=== PATIENT | female | born 1930 | race Caucasian/White ===

== ENCOUNTER 2017-07-07 00:15 | Inpatient (IN) | payer OTHER, MEDICAID ==
--- NOTE | 2017-07-07 00:39 | EDPHY ---
H & P Stated Complaint: BIBA from [facility] for known femoral neck fx rt Time Seen by Provider: 07/07/17 00:30 HPI/ROS: CHIEF COMPLAINT: Femoral neck fracture HISTORY OF PRESENT ILLNESS: The patient is an 86-year-old female with a history of dementia who is bed-bound who began complaining of leg pain 2 days ago. The [facility] performed a x-ray and sent her here for a femoral neck fracture. They do not state that she has had any altered mental status. No new weakness or deficits. She has a slightly elevated temperature and foul- smelling urine however. The patient cannot answer questions reliably. REVIEW OF SYSTEMS: Unable to obtain secondary to condition EXAM: GENERAL: Confused, mild distress HEAD: Atraumatic, normocephalic. EYES: Pupils equal round and reactive to light, extraocular movements intact, sclera anicteric, conjunctiva are normal. ENT: TMs normal, nares patent, oropharynx clear without exudates. Moist mucous membranes. NECK: Normal range of motion, supple without lymphadenopathy or JVD. LUNGS: Breath sounds clear to auscultation bilaterally and equal. No wheezes rales or rhonchi. HEART: Regular rate and rhythm without murmurs, rubs or gallops. ABDOMEN: Soft, nontender, normoactive bowel sounds. No guarding, no rebound. No masses appreciated. BACK: No CVA tenderness, no spinal tenderness, step-offs or deformities EXTREMITIES: Pain with movement of either leg. Patient states mold legs hurt. Previous surgical scars to both knees. NEUROLOGICAL: Cranial nerves II through XII grossly intact. Normal speech. 4/ 5 strength, normal movement in all extremities, normal sensation PSYCH: Confused SKIN: Warm, dry, normal turgor, no visible rashes or lesions. Source: Patient Exam Limitations: No limitations - Personal History Current Tetanus/Diphtheria Vaccine: Unsure Current Tetanus Diphtheria and Acellular Pertussis (TDAP): Unsure Tetanus Vaccine Date: PT ALLERGIC TO TETANUS VACCINE - Medical/Surgical History Hx Asthma: Yes Hx Chronic Respiratory Disease: Yes Hx Diabetes: No Hx Cardiac Disease: Yes Hx Renal Disease: No Hx Cirrhosis: No Hx Alcoholism: No Hx HIV/AIDS: No Hx Splenectomy or Spleen Trauma: No Other PMH: Anemia, lamar's esophagus, dementia, wheelchair-bound, CHF, COPD, B TKA, femur repair, hip repair, c-sections, hysterectomy, urinary incontinence , palliative care at [facility] - Family History Significant Family History: No pertinent family hx - Social History Smoking Status: Never smoked Alcohol Use: Sober Drug Use: None Constitutional: Initial Vital Signs O2 Sat (%) 95 07/07/17 00:26 O2 Delivery Mode Nasal Cannula O2 (L/minute) 2 Allergies/Adverse Reactions: aspirin Allergy (Severe, Verified 04/27/13 20:38) Anaphylaxis tetanus toxoid, adsorbed [Tetanus Toxoid,Adsorbed] Allergy (Severe, Verified 20:38) Other-Enter Comments epinephrine [Epinephrine] Allergy (Unknown, Verified 04/27/13 20:38) Unknown hydrocodone [Hydrocodone] Allergy (Unknown, Verified 04/27/13 20:38) Unknown hydrochlorothiazide Allergy (Verified 04/27/13 20:38) Home Medications: Medication Instructions Recorded Acetaminophen [Tylenol 325mg (*)] 650 mg PO Q4 PRN 05/30/15 Albuterol [Proventil Inhaler HFA 2 puffs IH Q2 PRN 05/30/15 (*)] Bisacodyl [Bisacodyl (*)] 5 mg PO DAILY PRN 05/30/15 DULoxetine [Cymbalta 60 MG (*)] 60 mg PO DAILY 05/30/15 Ergocalciferol [Vitamin D2 (*)] 50,000 units PO .QMONTH 05/30/15 Estring 2 Mg Insert 2 mg VG .Q3MOS 05/30/15 Furosemide [Lasix 40 MG (*)] 40 mg PO DAILY 05/30/15 Herbals/Supplements -Info Only 1 ea PO DAILY 05/30/15 Ipratropium/Albuterol [Combivent 1 inh IH QID PRN 05/30/15 Respimat Inhal Col[place](*)] Ketoconazole 2% [Nizoral Shampoo 1 nela TP DAILY PRN 05/30/15 (*)] LORazepam [Ativan (*)] 0.5 mg PO BID 05/30/15 LORazepam [Ativan (*)] 0.5 mg PO BID PRN 05/30/15 Levothyroxine [Synthroid 88 mcg 88 mcg PO DAILY06 05/30/15 (*)] Magnesium Hydroxide/Al Hydrox 30 ml PO Q4 PRN 05/30/15 [Mylanta Liquid] Omeprazole [Prilosec 20 mg] 20 mg PO DAILY 05/30/15 Ondansetron Odt [Zofran Odt 4 mg 4 mg PO Q8 PRN 05/30/15 (*)] Polyethylene Glycol 3350 [Miralax 17 gm PO DAILY 05/30/15 17 gm (*)] Sennosides/Docusate Sodium 1 each PO BID 05/30/15 [Senokot-S] Trimethoprim 200 mg PO DAILY 05/30/15 buPROPion [Wellbutrin 100mg (*)] 100 mg PO DAILY 05/30/15 guaiFENesin [Mucinex 600 MG (*)] 600 mg PO BID PRN 05/30/15 oxyCODONE IR [Oxycodone Ir (*)] 5 mg PO Q4 PRN 05/30/15 rOPINIRole HCL [Requip 0.25mg (RX)] 0.25 mg PO BID 05/30/15 traZODone [traZODONE 50MG (*)] 50 mg PO HS 05/30/15 Tapentadol HCl [Nucynta 50 MG (*)] 50 mg PO Q4 PRN #0 tab 06/04/15 Medical Decision Making ED Course/Re-evaluation: 2:45 a.m. I discussed the case with Dr. Kajal Braxton who will admit to the hospital service. I will also page orthopedist. I have started Rocephin. 2:55 a.m. I discussed the case with Ana who is the PA for Dr. Petersen. They will consult tomorrow. Differential Diagnosis: Partial list of the Differential diagnosis considered include but were not limited to; hip fracture, urinary tract infection, sepsis, altered mental status and although unlikely based on the history and physical exam, I also considered head injury, meningitis, assault. - Data Points Laboratory Results: Laboratory Results 07/07/17 01:02 07/07/17 01:02 07/07/17 07/07/17 07/07/17 02:00 01:02 01:02 WBC RBC Hgb Hct MCV MCH MCHC RDW Plt Count MPV Neut % (Auto) Lymph % (Auto) [place] % (Auto) Eos % (Auto) Baso % (Auto) Nucleat RBC Rel Count Absolute Neuts (auto) Absolute Lymphs (auto) Absolute Monos (auto) Absolute Eos (auto) Absolute Basos (auto) Absolute Nucleated RBC Immature Gran % Immature Gran # PT 14.3 SEC SEC (12.0-15.0) INR 1.12 (0.83-1.16) APTT 29.3 SEC SEC (23.0-38.0) VBG Lactic Acid Sodium 129 mEq/L L mEq/L (134-144) Potassium 4.6 mEq/L mEq/L (3.5-5.2) Chloride 97 mEq/L mEq/L (97-110) Carbon Dioxide 24 mEq/l mEq/l (22-31) Anion Gap 8 mEq/L mEq/L (8-16) BUN 10 mg/dL mg/dL (7-23) Creatinine 0.7 mg/dL mg/dL (0.6-1.0) Estimated GFR > 60 Glucose 108 mg/dL H mg/dL (70-100) Calcium 9.4 mg/dL mg/dL (8.5-10.4) Total Bilirubin 1.0 mg/dL mg/dL (0.1-1.4) Urine Color YELLOW Urine Appearance MODERATELY TURBID Urine pH 7.0 (5.0-7.5) Ur Specific [place] 1.012 (1.002-1.030) Urine Protein 1+ H (NEGATIVE) Urine Ketones NEGATIVE (NEGATIVE) Urine Blood 1+ H (NEGATIVE) Urine Nitrate POSITIVE H (NEGATIVE) Urine Bilirubin NEGATIVE (NEGATIVE) Urine Urobilinogen NEGATIVE EU EU (0.2-1.0) Ur Leukocyte Esterase TRACE H (NEGATIVE) Urine RBC 15-25 /hpf H /hpf (0-3) Urine WBC 50-182 /hpf H /hpf (0-3) Ur Epithelial Cells TRACE /lpf /lpf (NONE-1+) Urine Bacteria 4+ /hpf H /hpf (NONE SEEN) Urine Glucose NEGATIVE (NEGATIVE) 07/07/17 07/07/17 01:02 01:02 WBC 7.09 10^3/uL 10^3/uL (3.80-9.50) RBC 3.39 10^6/uL L 10^6/uL (4.18-5.33) Hgb 10.2 g/dL L g/dL (12.6-16.3) Hct 31.6 % L % (38.0-47.0) MCV 93.2 fL fL (81.5-99.8) MCH 30.1 pg pg (27.9-34.1) MCHC 32.3 g/dL L g/dL (32.4-36.7) RDW 14.3 % % (11.5-15.2) Plt Count 268 10^3/uL 10^3/uL (150-400) MPV 9.0 fL fL (8.7-11.7) Neut % (Auto) 70.5 % % (39.3-74.2) Lymph % (Auto) 14.4 % L % (15.0-45.0) [place] % (Auto) 13.0 % % (4.5-13.0) Eos % (Auto) 1.4 % % (0.6-7.6) Baso % (Auto) 0.4 % % (0.3-1.7) Nucleat RBC Rel Count 0.0 % % (0.0-0.2) Absolute Neuts (auto) 5.00 10^3/uL 10^3/uL (1.70-6.50) Absolute Lymphs (auto) 1.02 10^3/uL 10^3/uL (1.00-3.00) Absolute Monos (auto) 0.92 10^3/uL H 10^3/uL (0.30-0.80) Absolute Eos (auto) 0.10 10^3/uL 10^3/uL (0.03-0.40) Absolute Basos (auto) 0.03 10^3/uL 10^3/uL (0.02-0.10) Absolute Nucleated RBC 0.00 10^3/uL 10^3/uL (0-0.01) Immature Gran % 0.3 % % (0.0-1.1) Immature Gran # 0.02 10^3/uL 10^3/uL (0.00-0.10) PT INR APTT VBG Lactic Acid 0.5 mmol/L L mmol/L (0.7-2.1) Sodium Potassium Chloride Carbon Dioxide Anion Gap BUN Creatinine Estimated GFR Glucose Calcium Total Bilirubin Urine Color Urine Appearance Urine pH Ur Specific [place] Urine Protein Urine Ketones Urine Blood Urine Nitrate Urine Bilirubin Urine Urobilinogen Ur Leukocyte Esterase Urine RBC Urine WBC Ur Epithelial Cells Urine Bacteria Urine Glucose Medications Given: Hydromorphone HCl (Dilaudid) 0.5 - 1 mg IVP Q4HRS PRN PRN Reason: Pain, Severe Unable to Take PO Stop: 07/17/17 03:32 Last Admin: 07/07/17 03:52 Dose: 0.5 mg Dextrose/Sodium Chloride (D5w 1/2 Ns) 1,000 mls @ 75 mls/hr IV CONT KAREN Stop: 01/03/18 03:44 Last Admin: 07/07/17 03:53 Dose: 1,000 mls Discontinued Medications Hydromorphone HCl (Dilaudid) 0.5 mg IVP EDNOW ONE Stop: 07/07/17 01:07 Last Admin: 07/07/17 01:18 Dose: 0.5 mg Ceftriaxone Sodium/Dextrose (Rocephin 1 Gm (Premix)) 50 mls @ 100 mls/hr IV EDNOW ONE PRN Reason: Protocol Stop: 07/07/17 03:13 Last Admin: 07/07/17 02:49 Dose: 50 mls Departure - Departure Disposition: [facility] Inpatient Acute Clinical Impression: Urinary tract infection Qualifiers: Urinary tract infection type: acute cystitis Hematuria presence: without hematuria Qualified Code(s): N30.00 - Acute cystitis without hematuria Hip fracture, right Qualifiers: Encounter type: initial encounter Fracture type: closed Qualified Code(s): S72.001A - Fracture of unspecified part of neck of right femur, initial encounter for closed fracture Condition: Fair
[2017-07-07] MEDS ORDERED: HYDROmorphONE/DILAUDID 1 MG/ML SYR IVP ONE (01:06)
[2017-07-07 01:16] LABS: % IMMATURE GRANULYOCYTES 0.3 % (0.0-1.1); ABSOLUTE IMMATURE GRANULOCYTES 0.02 10^3/uL (0.00-0.10); ADD DIFF? NO; ADD MORPH? NO; ADD SCAN? NO; ATYPICAL LYMPHOCYTE FLAG 0 (0-99); FRAGMENT RBC FLAG 0 (0-99); HEMATOCRIT 31.6 % (38.0-47.0); HEMOGLOBIN 10.2 g/dL (12.6-16.3); LEFT SHIFT FLG 0 (0-99); LIPEMIA HEMOLYSIS FLAG 80 (0-99); MEAN CELL HEMOGLOBIN 30.1 pg (27.9-34.1); MEAN CELL HEMOGLOBIN CONCENTR. 32.3 g/dL (32.4-36.7); MEAN CELL VOLUME 93.2 fL (81.5-99.8); PLATELET CLUMPS FLAG 20 (0-99); PLATELET COUNT 268 10^3/uL (150-400); RED BLOOD CELL COUNT 3.39 10^6/uL (4.18-5.33); RED CELL DISTRIBUTION WIDTH 14.3 % (11.5-15.2)
[2017-07-07 01:24] LABS: ANION GAP 8 mEq/L (8-16); CALCIUM 9.4 mg/dL (8.5-10.4); CARBON DIOXIDE 24 mEq/l (22-31); CHLORIDE 97 mEq/L (97-110); CREATININE 0.7 mg/dL (0.6-1.0); GLOMERULAR FILTRATION RATE > 60; GLUCOSE 108 mg/dL (70-100); POTASSIUM 4.6 mEq/L (3.5-5.2); SODIUM 129 mEq/L (134-144)
[2017-07-07 01:25] LABS: INR 1.12 (0.83-1.16); PROTIME(PATIENT) 14.3 SEC (12.0-15.0)
[2017-07-07 01:26] LABS: APTT 29.3 SEC (23.0-38.0)
[2017-07-07] MEDS ORDERED: LIDOCAINE 2% JELLY 20 ML (UROJECT) ONE (01:56)
[2017-07-07 02:08] LABS: COLOR YELLOW; LEUKOCYTE ESTERASE,URINE TRACE (NEGATIVE); NITRITE,URINE POSITIVE (NEGATIVE)
[2017-07-07 02:14] LABS: BACTERIA 4+ /hpf (NONE SEEN); RBC,URINE 15-25 /hpf (0-3); WBC,URINE 50-182 /hpf (0-3)
[2017-07-07] MEDS ORDERED: ONDANSETRON DISINTEGRATING 4 MG TAB PO PRN (03:33)
[2017-07-07] MEDS ORDERED: ONDANSETRON 4 MG/2 ML VIAL IVP PRN (03:33)
[2017-07-07] MEDS ORDERED: ACETAMINOPHEN 325 MG TAB PO PRN (03:33)
[2017-07-07] MEDS: HYDROmorphONE/DILAUDID 1 MG/ML SYR IVP PRN ×3 (03:52→09:39)
[2017-07-07] MEDS: D5W 1/2 NS 1,000 ML IV SCH ×3 (03:53→18:25)
--- NOTE | 2017-07-07 07:26 | GHP ---
[f rep st] HISTORY AND PHYSICAL DATE OF ADMISSION: 07/07/2017 CHIEF COMPLAINT: Leg pain. HISTORY OF PRESENT ILLNESS: This is an 86-year-old female with advanced dementia. She is essential ly bed bound. She started complaining of leg pain about 2 days ago and the custodial performed a n x-ray and fracture and sent her here. The patient is currently complaining of pain "al l over". She is unable to really participate in a meaningful history. Apparently, she has also had some slightly elevated temperature, a mild fever and foul-smelling urine. REVIEW OF SYSTEMS: Unable to be obtained secondary to patient's significant dementia. PAST MEDICAL HISTORY: 1. Advanced dementia. 2. COPD. 3. Hypothyroidism. 4. Hypertension. 5. History of breast cancer. 6. Stevens's esophagus. 7. Questionable CHF. 8. Urinary incontinence. 9. Chronic anemia. FAMILY HISTORY: Unable to be obtained. SOCIAL HISTORY: Lives at [facility]. PHYSICAL EXAM: VITAL SIGNS: Afebrile, blood pressure is 129/58, heart rate 83, oxygen saturation 9 2% on 1.5 L. GENERAL: The patient is distressed secondary to pain. HEENT: Nonicteric sclerae. E xtraocular movements intact. Moist mucous membranes. NECK: Supple. No thyromegaly. LUNGS: Good effort. Clear to auscultation bilaterally. CARDIOVASCULAR: Regular rate and rhythm. No murmurs, rubs, or gallops. ABDOMEN: Positive bowel sounds, soft, multiple hernias, especially on the right side. EXTREMITIES: No clubbing, cyanosis, or edema. SKIN: Without rash, warm, dry, intact. HALEY RO: Confused. LABS: CBC is essentially normal with a hemoglobin of 10. Sodium 129 which appears to be chronic. Creatinine is 0.7. Urinalysis does show pyuria and bacteria. ASSESSMENT: 1. Right femoral hip fracture. The patient will go to surgery today. 2. Urinary tract infection. We will treat with IV ceftriaxone. 3. Dementia. This is fairly significant. 4. Anemia. Monitor postoperatively. 5. Questionable congestive heart failure. We will watch fluid intake. 6. Chronic obstructive pulmonary disease. This is stable. /[id number]/MODL
--- NOTE | 2017-07-07 08:27 | HOSPPROG ---
Hospitalist Progress Note Assessment/Plan: Patient is an 86-year-old female with advanced dementia who had been complaining of leg pain. It was noted that she had a right femoral hip fracture. She will be going to OR today. * right femoral hip fracture Surgery today patient having significant pain this morning increased frequency of pain medications * urinary tract infection Ceftriaxone * advanced dementia suspect she is at her baseline * hypothyroidism resumed Synthroid * hyponatremia Na is 129 will follow * hypertension stable *questionable hx of CHF will monitor for any signs of failure *anemia follow *DVT prophylaxis will need LMWH after surgery, athrombic pumps in place Subjective: Pham is confused, not c/o pain when I evaluated her/ asking to get oob. Objective: Vital Signs Temp Pulse Resp BP Pulse Ox 37.3 C 83 12 135/69 H 95 07/07/17 07:28 07/07/17 07:28 07/07/17 07:28 07/07/17 07:28 07/07/17 07:28 07/06/17 07/07/17 07/08/17 05:59 05:59 05:59 Intake Total 100 Balance 100 PT 14.3 SEC (12.0-15.0) 07/07/17 01:02 INR 1.12 (0.83-1.16) 07/07/17 01:02 - Physical Exam Constitutional: chronically ill appearing, uncomfortable Eyes: PERRL Ears, Nose, Mouth, Throat: hearing normal Cardiovascular: regular rate and rhythym Respiratory: no respiratory distress, reduced air movement Gastrointestinal: normoactive bowel sounds Skin: warm, normal color Neurologic: other (alert, oriented only to herself) Psychiatric: anxious, poor memory ICD10 Worksheet Patient Problems: Problems Problem Status Onset Hip fracture, right Acute Urinary tract infection Acute Tibial fracture Acute
[2017-07-07] MEDS ORDERED: IPRATROPIUM/ALBUTEROL 3 ML DEYVIAL IH PRN (08:50)
--- NOTE | 2017-07-07 09:45 | CPEKG ---
Heart Rate: 85 RR Interval: 706 P-R Interval: 152 QRSD Interval: 76 QT Interval: 364 QTC Interval: 433 P Mission: 37 QRS Mission: 33 T Wave Mission: -15 EKG Severity - BORDERLINE ECG - EKG Impression: SINUS RHYTHM EKG Impression: BORDERLINE T ABNORMALITIES, INFERIOR LEADS Electronically Signed By: Chirag Nguyen 07-Jul-2017 11:48:07
[2017-07-07] MEDS: SALMETEROL DISKUS MDI IH SCH ×2 (10:04→21:09)
[2017-07-07] MEDS: TIOTROPIUM INHALER 18 MCG/DOSE 5 DOSE/MDI IH SCH (10:04)
[2017-07-07] MEDS: SERTRALINE HCL 50 MG TAB PO SCH (10:21)
[2017-07-07] MEDS: GABAPENTIN 100 MG CAP PO SCH ×2 (10:22→20:31)
[2017-07-07] MEDS: LORazepam 0.5 MG TAB PO SCH ×2 (10:23→20:31)
[2017-07-07] MEDS: SENNOSIDES/DOCUSATE SODIUM TAB PO SCH ×2 (10:37→20:30)
--- NOTE | 2017-07-07 10:49 | ASMTCASEMG ---
Living Arrangements What is your living arrangement? Who do you live Answers: Alone with? Type Of Residence What kind of residence do you live in? Answers: [facility] Facility Type of Residence Facility Name Notes: [facility] Case Management Evaluation Psychosocial Needs: Answers: Behavioral Health Issue Notes: Dementia Discharge Plan Comments Coordination Status Comments Notes: Chart reviewed; met w/ son and pt. Pt admitted w/ right femoral hip fracture after falling, accordi ng to son. Pt has advanced dementia. Pt will have surgery today. Spoke w/ BENJAMIN Eldridge. Reports that pt will most likely transfer to ortho/neuro. Pt resi nicole at [facility]. CM called [facility] and left [facility] for director television/requesting a call back to discuss case. CM to follow. Date Signed: 07/07/2017 10:48 AM Electronically Signed By:Skye Darby
[2017-07-07] MEDS ORDERED: MAGNESIUM HYDROXIDE 30 ML UDCUP PO PRN (11:16)
[2017-07-07] MEDS ORDERED: BISACODYL 10 MG SUPP PR PRN (11:16)
[2017-07-07] MEDS ORDERED: LACTULOSE 20 GM/30 ML UDCUP PO PRN (11:16)
--- NOTE | 2017-07-07 12:27 | GCON ---
[f rep st] CONSULTATION CHIEF COMPLAINT: Right hip pain. HISTORY OF PRESENT ILLNESS: Patient is an 86-year-old female with a significant history of dementia, who is bedbound, limited to transfers (non- self transfers only x 2 yrs) and started complaining of right hip pain about 2 days ago. She is residing at a palliative care nursing facility. She denies any weakness or deficits. She has had elevated temperatures with foul-smelling urine and a diagnosis of a urinary tract infection. She was seen through the [facility] ER, then admitted to the hospital and started on antibiotics for her UTI. She denies any other orthopedic complaint. PAST MEDICAL HISTORY: Dementia, urinary incontinence, asthma, COPD, hypothyroid , hyponatremia, cardiac disease, CHF, anemia, Stevens esophagus. PAST SURGICAL HISTORY: L hip tiki 2008, L femur ORIF 2010. B TKA . JUANCHO 1979. Spine cyst resxn mid . C-sections. SOCIAL HISTORY: Patient is non cigarette smoker. No alcohol or drug use. Resides at [facility]. ALLERGIES: Aspirin, tetanus, epinephrine, hydrocodone, HCTZ. MEDICATIONS: Please see medication list in her chart. FAMILY HISTORY: Noncontributory. REVIEW OF SYSTEMS: Unable to obtain secondary to condition. Reviewed with son with no other complaints or concerns or history. PHYSICAL EXAMINATION: GENERAL: Pleasant, NAD. HEENT: AT/NC. EOMI. PERRLA. Ears and nares patent without discharge. NECK: Nontender to palpation. Full range of motion. MUSCULOSKELETAL: Exam of the right hip, the skin is without erythema, ecchymosis, scar or edema. There is pain to palpation over the right greater trochanter and pain with any movement, internal or external rotation of the hip. sensation and motor are intact. Distal pulse present in the right lower extremity. SKIN: Warm, dry and intact. NEUROLOGIC: Nonfocal. No deficits noted. PSYCHIATRIC: Alert and awake, but confused. RADIOGRAPHS: X-ray reviewed and show a right hip femoral neck fracture. IMPRESSION: Displaced right hip femoral neck fracture. PLAN: Patient was examined and was discussed with Dr. Petersen. Dr. Petersen did speak to the patient's son, who is the medical decision maker, about appropriate care. It was decided that the patient would go forward with a right hip hemiarthroplasty for her right hip femoral neck fracture, at a minimum for palliative reasons. All the risks, benefits, complications were explained to the son. Dr. Petersen has obtained a signed and witnessed informed consent, for hemiarthroplasty on July 08, by Dr. Petersen. Continue IV abx for UTI. NPO p MN x meds. Patient should continue nonweightbearing on the right lower extremity, bedrest and position of comfort, TEDs and SCDs bilateral lower extremities. DVT prophylaxis will be managed by the admitting service. Ice to the right hip and pain medicine as needed. All questions were answered to the patient's satisfaction and son's satisfaction. /[id number]/MODL MTDD
[2017-07-07] MEDS: HYDROmorphONE/DILAUDID 2 MG TAB PO PRN ×2 (14:25→20:31)
--- NOTE | 2017-07-07 16:39 | ASMTCMCOM ---
CM Note CM Note Notes: Son suspecting that pt fell at [facility]. CM recieved call from BENJAMIN Barboza at [facility]. Accord ing to Tamra there have not been any falls that have been reported. Tamra is in the process of interviewing staff that had direct contact w/ pt. CM updated son regarding conversation w/ Tamra. Son to follow up with Tamra. Date Signed: 07/07/2017 04:38 PM Electronically Signed By:Skye Darby
[2017-07-08] MEDS: HYDROmorphONE/DILAUDID 2 MG TAB PO PRN ×2 (00:27→04:52)
[2017-07-08] MEDS: LEVOTHYROXINE 88 MCG TAB PO SCH (04:52)
[2017-07-08 05:23] LABS: % IMMATURE GRANULYOCYTES 0.4 % (0.0-1.1); ABSOLUTE IMMATURE GRANULOCYTES 0.03 10^3/uL (0.00-0.10); ADD DIFF? NO; ADD MORPH? NO; ADD SCAN? NO; ATYPICAL LYMPHOCYTE FLAG 0 (0-99); FRAGMENT RBC FLAG 0 (0-99); HEMATOCRIT 32.6 % (38.0-47.0); HEMOGLOBIN 10.3 g/dL (12.6-16.3); LEFT SHIFT FLG 0 (0-99); LIPEMIA HEMOLYSIS FLAG 80 (0-99); MEAN CELL HEMOGLOBIN 30.5 pg (27.9-34.1); MEAN CELL HEMOGLOBIN CONCENTR. 31.6 g/dL (32.4-36.7); MEAN CELL VOLUME 96.4 fL (81.5-99.8); MEAN PLATELET VOLUME 9.4 fL (8.7-11.7); PLATELET CLUMPS FLAG 0 (0-99); PLATELET COUNT 253 10^3/uL (150-400); RED BLOOD CELL COUNT 3.38 10^6/uL (4.18-5.33)
[2017-07-08 05:33] LABS: ANION GAP 7 mEq/L (8-16); CALCIUM 9.2 mg/dL (8.5-10.4); CARBON DIOXIDE 25 mEq/l (22-31); CHLORIDE 96 mEq/L (97-110); CREATININE 0.6 mg/dL (0.6-1.0); GLOMERULAR FILTRATION RATE > 60; GLUCOSE 99 mg/dL (70-100); POTASSIUM 4.5 mEq/L (3.5-5.2); SODIUM 128 mEq/L (134-144)
--- NOTE | 2017-07-08 08:21 | SOAPPROG ---
WILDER Progress Note Assessment/Plan: Assessment/Plan: R femoral neck fracture - Plan for R hemiarthroplasty today with Dr. Petersen - Pt is bedbound - Continue pain control - PT/OT after surgery - NPO - Ice on the area for comfort - Call with any questions or concerns Plan: 07/08/17 08:18 Subjective: Pt states her hip is fine, she is not complaining of any pain. Objective: Pt is asleep and can be aroused, but does not answer questions. She is able to follow commands. Vital Signs Temp Pulse Resp BP Pulse Ox 38.0 C 80 24 H 124/55 H 97 07/08/17 07:42 07/08/17 07:42 07/08/17 07:42 07/08/17 07:42 07/08/17 07:42 Laboratory Results 07/08/17 04:25 07/08/17 04:25 07/07/17 07/08/17 07/09/17 05:59 05:59 05:59 Intake Total 100 Balance 100 PT 14.3 SEC (12.0-15.0) 07/07/17 01:02 INR 1.12 (0.83-1.16) 07/07/17 01:02 Physical Exam - Physical Exam General Appearance: other (sleeping soundly) Cardiac/Chest: normal peripheral pulses Skin: normal color, warm/dry Extremities: normal inspection, normal capillary refill, No pedal edema, No calf tenderness, No swelling, No Leah's sign Neuro/Psych: no motor/sensory deficits ICD10 Worksheet Patient Problems: Problems Problem Status Onset Hip fracture, right Acute Urinary tract infection Acute Tibial fracture Acute
[2017-07-08] MEDS: PANTOPRAZOLE SODIUM 40 MG TAB PO SCH (08:23)
[2017-07-08] MEDS: LORazepam 0.5 MG TAB PO SCH ×2 (08:23→20:42)
[2017-07-08] MEDS: POLYETHYLENE GLYCOL 3350 17 GM PKT PO SCH (08:23)
[2017-07-08] MEDS: GABAPENTIN 100 MG CAP PO SCH ×2 (08:23→20:43)
[2017-07-08] MEDS: SERTRALINE HCL 50 MG TAB PO SCH (08:24)
[2017-07-08] MEDS: SENNOSIDES/DOCUSATE SODIUM TAB PO SCH ×2 (08:24→20:42)
--- NOTE | 2017-07-08 08:43 | HOSPPROG ---
Hospitalist Progress Note Assessment/Plan: Patient is an 86-year-old female with advanced dementia who had been complaining of leg pain. It was noted that she had a right femoral hip fracture. She will be going to OR today. * right femoral hip fracture Surgery today * urinary tract infection Ceftriaxone * advanced dementia suspect she is at her baseline * hypothyroidism resumed Synthroid * hyponatremia Na is 128 will follow * hypertension stable *questionable hx of CHF will monitor for any signs of failure *anemia follow *DVT prophylaxis will need LMWH after surgery, athrombic pumps in place Subjective: Pham keeps asking to eat during my evaluation. Objective: Vital Signs Temp Pulse Resp BP Pulse Ox 38.0 C 80 24 H 124/55 H 97 07/08/17 07:42 07/08/17 07:42 07/08/17 07:42 07/08/17 07:42 07/08/17 07:42 Laboratory Results 07/08/17 04:25 07/08/17 04:25 07/07/17 07/08/17 07/09/17 05:59 05:59 05:59 Intake Total 100 Balance 100 PT 14.3 SEC (12.0-15.0) 07/07/17 01:02 INR 1.12 (0.83-1.16) 07/07/17 01:02 - Physical Exam Constitutional: chronically ill appearing, uncomfortable, No not in pain Eyes: PERRL Ears, Nose, Mouth, Throat: hearing normal Cardiovascular: regular rate and rhythym Respiratory: no respiratory distress Gastrointestinal: normoactive bowel sounds Skin: warm Psychiatric: interacting appropriately, poor memory ICD10 Worksheet Patient Problems: Problems Problem Status Onset Hip fracture, right Acute Urinary tract infection Acute Tibial fracture Acute
[2017-07-08] MEDS ORDERED: NS 1,000 ML IV SCH (08:45)
[2017-07-08] MEDS: HYDROmorphONE/DILAUDID 1 MG/ML SYR IVP PRN ×2 (09:15→17:52)
[2017-07-08] MEDS: TIOTROPIUM INHALER 18 MCG/DOSE 5 DOSE/MDI IH SCH (09:35)
[2017-07-08] MEDS: SALMETEROL DISKUS MDI IH SCH ×2 (09:36→20:25)
[2017-07-08] MEDS ORDERED: BUPIVACAINE 0.25% 30 ML SDV ONE ×2 (10:10→11:39)
[2017-07-08] MEDS ORDERED: ceFAZolin 2 GM/DEXTROSE 100 ML IV ONE (11:07)
[2017-07-08] MEDS ORDERED: ROCURONIUM 50 MG/5 ML VIAL ONE (11:23)
[2017-07-08] MEDS ORDERED: fentaNYL 100 MCG/2 ML INJ ONE ×4 (11:23→15:03)
[2017-07-08] MEDS ORDERED: PROPOFOL 200 MG/20 ML VIAL ONE (11:23)
[2017-07-08] MEDS ORDERED: LIDOCAINE 2% 100 MG/5 ML SYR ONE (11:24)
[2017-07-08] MEDS ORDERED: LR 1,000 ML IV ONE (11:30)
--- NOTE | 2017-07-08 11:32 | PDANEPAE ---
ANE Past Medical History - Pulmonary History Hx Oxygen in Use at Home: Yes O2 in Use at Home (L/minute): 2 Hx Sleep Apnea: No Sleep Apnea Screening Result - Last Documented: Negative - Endocrine History Hx Diabetes: No ANE Patient History - Allergies Allergies/Adverse Reactions: aspirin Allergy (Severe, Verified 04/27/13 20:38) Anaphylaxis tetanus toxoid, adsorbed [Tetanus Toxoid,Adsorbed] Allergy (Severe, Verified 20:38) Other-Enter Comments epinephrine [Epinephrine] Allergy (Unknown, Verified 04/27/13 20:38) Unknown hydrocodone [Hydrocodone] Allergy (Unknown, Verified 04/27/13 20:38) Unknown hydrochlorothiazide Allergy (Verified 04/27/13 20:38) - Home Medications Home Medications: Acetaminophen [Tylenol 325mg (*)] 650 mg PO Q6HRS PRN 05/30/15 [Last Taken Unknown] Bisacodyl [Bisacodyl (*)] 5 mg PO DAILY PRN 05/30/15 [Last Taken Unknown] Ergocalciferol [Vitamin D2 (*)] 50,000 units PO Q30D 05/30/15 [Last Taken ] Estring 2 Mg Insert 2 mg VG .Q3MOS 05/30/15 [Last Taken Unknown] Ketoconazole 2% [Nizoral Shampoo (*)] 1 nela TP DAILY PRN 05/30/15 [Last Taken Unknown] LORazepam [Ativan (*)] 0.25 mg PO DAILY 05/30/15 [Last Taken Unknown] LORazepam [Ativan (*)] 0.5 mg PO HS 05/30/15 [Last Taken Unknown] Levothyroxine [Synthroid 88 mcg (*)] 88 mcg PO DAILY06 05/30/15 [Last Taken Unknown] Magnesium Hydroxide/Al Hydrox [Mylanta Liquid] 30 ml PO DAILY PRN 05/30/15 [ Last Taken Unknown] Omeprazole [Prilosec 20 mg] 20 mg PO DAILY 05/30/15 [Last Taken Unknown] Polyethylene Glycol 3350 [Miralax 17 gm (*)] 17 gm PO DAILY 05/30/15 [Last Taken Unknown] Sennosides/Docusate Sodium [Senokot-S] 1 each PO BID 05/30/15 [Last Taken Unknown] Trimethoprim 200 mg PO DAILY 05/30/15 [Last Taken Unknown] traZODone [traZODONE 50MG (*)] 25 mg PO HS 05/30/15 [Last Taken Unknown] Bisacodyl [Dulcolax] 10 mg RC DAILY PRN 07/07/17 [Last Taken Unknown] Furosemide [Lasix 20 MG (*)] 20 mg PO DAILY 07/07/17 [Last Taken Unknown] Gabapentin [Neurontin 100 MG (*)] 100 mg PO BID 07/07/17 [Last Taken Unknown] HYDROmorphone HCL [Dilaudid 2 mg (*)] 2 mg PO BID PRN 07/07/17 [Last Taken Unknown] HYDROmorphone HCL [Dilaudid 2 mg (*)] 2 mg PO DAILY 07/07/17 [Last Taken Unknown ] Ipratropium/Albuterol [Duoneb (*)] 3 ml IH Q4HRS PRN 07/07/17 [Last Taken Unknown] Ondansetron HCl [Zofran] 4 mg PO Q8HRS PRN 07/07/17 [Last Taken Unknown] Salmeterol Diskus [Serevent Diskus (*)] 1 puffs IH BID 07/07/17 [Last Taken Unknown] Sertraline HCl [Zoloft 50mg (*)] 75 mg PO DAILY 07/07/17 [Last Taken Unknown] Tiotropium Inhaler [Spiriva Inhaler] 1 inh IH DAILY 07/07/17 [Last Taken Unknown ] guaiFENesin/DEXTROMETHORPHAN [Robitussin Dm Oral Liquid (*)] 10 ml PO Q4HRS PRN 07/07/17 [Last Taken Unknown] rOPINIRole HCL [Requip 1mg (*)] 1 mg PO BID 07/07/17 [Last Taken Unknown] - NPO status NPO Since - Liquids (Date): 07/08/17 NPO Since - Liquids (Time): 00:00 NPO Since - Solids (Date): 07/08/17 NPO Since - Solids (Time): 00:00 - Smoking Hx Smoking Status: Never smoked - Alcohol Use Alcohol Use: Sober ANE Labs/Vital Signs - Labs Result Diagrams: 07/08/17 04:25 07/08/17 04:25 - Vital Signs Blood Pressure: 109/62 Heart Rate: 82 Respiratory Rate: 16 O2 Sat (%): 99 Height: 172.72 cm ANE Physical Exam - Airway Neck exam: decreased ROM Mallampati Score: Class 3 Mouth exam: poor dentition - Pulmonary Pulmonary: no respiratory distress - Cardiovascular Cardiovascular: regular rate and rhythym - ASA Status ASA Status: IV (severe dementia. Son consented for GA) ANE Anesthesia Plan Anesthesia Plan: general endotracheal anesthesia
[2017-07-08] MEDS ORDERED: NALOXONE HCL 0.4 MG/ML INJ IVP PRN (13:59)
[2017-07-08] MEDS ORDERED: ALBUTEROL 3 ML DEYVIAL IH PRN (13:59)
[2017-07-08] MEDS ORDERED: ONDANSETRON 4 MG/2 ML VIAL IVP PRN (13:59)
--- NOTE | 2017-07-08 14:01 | POSTANESTH ---
Post Anesthetic Evaluation Cardiovascular Status: Normal, Stable, Similar to Pre-Op Cond Respiratory Status: Similar to Pre-op Cond. Level of Consciousness/Mental Status: Other, See Comment (dementia) Pain Control: Adequate, Prn Tx Ordered Nausea/Vomiting Control: Adequate, Prn Tx Ordered Complications Possibly Related to Anesthesia: None Noted
--- NOTE | 2017-07-08 14:03 | POSTOPPROG ---
Post Op Note Date of Operation: 07/08/17 Surgeon: Richmond Petersen Chaser Tar: Kim Chauhan PA-C Anesthesiologist: Dr. Marie Anesthesia: GET(General Endotracheal) Pre-op Diagnosis: R femoral neck fracture Post-op Diagnosis: R femoral neck fracture Procedure: R hip hemiarthroplasty Findings: See full dictation Inf/Abcess present in the surg proc area at time of surgery?: No Depth: Organ Space EBL: 100-500 Drains: Ady Agarwal
[2017-07-08] MEDS: fentaNYL 100 MCG/2 ML INJ IVP PRN ×2 (14:23→15:05)
--- NOTE | 2017-07-08 15:21 | GOP ---
[f rep st] OPERATIVE REPORT DATE OF OPERATION: 07/08/2017 SURGEON: Richmond Petersen MD FIELD CROP GROWER: Rut Lou ANESTHESIA: General. ANESTHESIOLOGIST: Dr. Marie. PREOPERATIVE DIAGNOSIS: Right femoral neck fracture, displaced. POSTOPERATIVE DIAGNOSIS: Right femoral neck fracture, displaced. PROCEDURE PERFORMED: Right hip hemiarthroplasty. FINDINGS: Right hip femoral neck fracture, transcervical with comminution. Bone quality consistent with severe osteoporosis. 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 SPECIMENS: None. ESTIMATED BLOOD LOSS: 100 cc. INDICATIONS: This is an 86-year-old female with advanced dementia and who was previously essentiall y bedbound independently, but is able to transfer to the wheelchair, and in the wheelchair she does actively wheel herself around with her legs. After discussing the risks, benefits and alternatives to operative versus nonoperative care for this fracture, given the patient's mental status the son u nderstood and elected to proceed with right hip surgery as listed above, to at least restore her candie k to her baseline function and for palliative measures. The questions were all answered prior to chavarria rgery. He provided a signed witnessed informed consent, as the medical power of assistant prosecuting attorney. Please s ee history and physical, as well as chart for additional information. DESCRIPTION OF PROCEDURE: The patient was identified in the preoperative holding area and her right hip was signed and designated as the operative site. The patient was confirmed in left lower extre mity CHELLE marquez and SCDs. She was treated with 2 g IV prophylactic cefazolin per protocol, and then t aken back to the operative room for surgery. She was intubated on a gurney, and then transferred to the OR table. Once her airway was stabilized, she was converted to the lateral decubitus position, with the right hip up and a left-sided axillary roll. Left upper extremity was forward flexed on a well-padded arm board, and then the right upper extremity was placed on a standard bone foam wedge. Positioning as well as the entire surgery was rather difficult due to significant flexion contract ures of both knees. This made it very difficult to expose the hip joint, as well as prep the hip. With 3 nurses, the hip was held in external rotation in order to limit the leg falling out of positi on while sterilely prepping and draping the right hip. The right hip was then prepped and draped in a standard sterile fashion. Please note that the left down leg was padded around the knee and ankl e with abundant egg crate padding, in addition to the Gel-Foam padded OR table. A standard posterolateral approach to the right hip was utilized. An increased overall incision [facility] to approximately 16 cm was necessary for the surgery due to the patient's copious buttock fat as well as her limited motion at the hip and knee due to he r contractures. Full-thickness dermal incision was made with a #10 blade, and then careful dissecti on was taken down through the abundant fat. Bovie cautery device was utilized to coagulate all smal l crossing bleeders. The IT band and gluteal fascia were identified. The IT band was split in para llel with its fibers, and then curved up proximally through the gluteal fascia. Bovie cautery devic e was used to carefully dissect down through the abundant greater trochanteric bursal tissues and pe rformed bursectomy. In addition, the gluteus gary muscle fibers were carefully divided, and meti culous hemostasis was maintained with the Bovie cautery device. With progressive internal rotation of the hip, the soft tissues were carefully dissected away from t he posterior aspect of the greater trochanter. The piriformis tendon was identified. A blunt Cobra was placed deep to the abductors for retraction. A #1 Ethibond was used to tag the piriformis and then it was released from its origin site. This was then retracted posteriorly. With additional in internal rotation the short external rotators were carefully divided from their insertion site on t he posterior aspect of the greater trochanter. Fracture hematoma was encountered, and this was suct ion irrigated. A hockey stick arthrotomy was performed, with great care taken to protect the sciati c nerve. Dissection was then carried along the posterior femoral neck, and all adhesions were divid ed. Once appropriate exposure was achieved, a standard cutting guide was used to make a standard pr oximal femoral cutting block, excising the neck portion of the fracture. This was then removed in i ts entirety. At this point, it was noted that the patient had obvious osteoporosis. Using a threaded awl, the femoral head was grasped and then removed from the hip. The ligamentum te res was intact, and therefore this was necessary to be divided by the curved Mayos. The head was th en sized and found to be appropriate size of 47 mm. This was trialed with the standard trial and fo und to be appropriate. Additional debridement was necessary within the acetabulum in order to remov e a large ligamentum teres, as well as some hypertrophic synovial tissues. Once this was completed, the proximal femur was prepared. Using a standard proximal femoral elevator and blunt Cobra the necessary exposure was achieved. Due to the patient's abundant fat as well as contracture, exposure was quite difficult for this patient . A box osteotome was used to enter the proximal femoral canal. A canal finder was then utilized i n standard valgus. Reaming was then performed up to a size 6/7 reamer. Next, the hip was broached with standard broaching technique in approximately 20 degrees of anteversion. The #4 broach was fou nd to have a reasonable enough fit in order to release trial the hip. A standard neck, i.e., +0 nec k and 47 monopolar trial was then placed and found to be the appropriate dimensions for the patient' s hip. Excellent stability was confirmed with internal rotation to approximately 60 degrees at neut ral adduction, and then with sleeping position, i.e., full adduction and complete abandoning of all precautions, the patient's hip was still stable to about 45 degrees of internal rotation. Rectus te st was appropriate. As a result, all trial components were removed from the hip. The formal compon ents were readied on the back table as well as the cement was prepared. The canal was then copiously irrigated with pulsatile lavage. A distal cement restrictor was placed . A suction sponge was then placed down the canal to maintain a relatively dry canal. A third generation cement technique was utilized in order to fill the proximal femoral canal, and th en pressurized with a standard pressurization device and plug. All excess cement was then removed f rom the proximal femur and hip surgical site. The formal stem was then placed in approximately 20 d egrees of anteversion, and advanced down to the appropriate depth with good engagement of the collar on the calcar. All excess cement was again removed from around the stem, and from the surgical sit e. This was held in position and the cement was then allowed to mature and harden. A drain was susan melinda around the neck of the stem. The +0, 47 mm monopolar head was then placed with the collar adapt er and excellent Bland taper engagement was achieved throughout. This was malleted in place, and co nfirmed to be in place and well seated with lanier tugging by me. Once this was confirmed to be in a ppropriate position, the hip joint was reduced with gentle traction and external rotation. A very n ice final construct was confirmed, with standard stability testing as well as rectus testing. Once this was completed, the hip was further irrigated with sterile saline. Closure was then begun. Multiple #1 Ethibond sutures were used to reapproximate the piriformis tendon to its insertion site, as well as repair the posterior capsule. The patient's osteoporosis was again notable with passage of free needles through the greater trochanter. These were then directly tied by me. The drain wa s confirmed to be free and without any capture within the hip joint. The IT band was then closed wi th multiple interrupted #1 Ethibond sutures. The deep fat space was reapproximated with multiple 0 Vicryl sutures in order to close and diminish the potential space, given the 3 or 4 inches of subcut aneous fat between skin and fascia. Once this was completed, the deep 2-0 Vicryl deep dermal suture s were placed in standard interrupted manner. The skin was formally closed with enrique. Sterile p ostoperative surgical dressings were applied. Both legs were then confirmed to have CHELLE hose in pos ition and SCDs. The standard abduction pillow was placed. The patient was then returned to the sup ine position. The anesthesia service took over to wake her up. TOURNIQUET TIME: None. DRAINS: 1 Davol drain. IMPLANTS: [employer] [place] size 4 standard stem, cemented. Modular tapered spacer and monopola r 47 mm hemiarthroplasty head, with a +0 neck. No distal stem centralizer was utilized. There is a distal cement restrictor. COMPLICATIONS: None. DISPOSITION: Patient was extubated and transferred to the PACU in stable condition. /[id number]/MODL
[2017-07-08] MEDS ORDERED: FAMOTIDINE 20 MG/NACL 50 ML IV ONE (15:58)
[2017-07-09 05:07] LABS: % IMMATURE GRANULYOCYTES 0.5 % (0.0-1.1); ABSOLUTE IMMATURE GRANULOCYTES 0.04 10^3/uL (0.00-0.10); ADD DIFF? NO; ADD MORPH? NO; ADD SCAN? NO; ATYPICAL LYMPHOCYTE FLAG 0 (0-99); FRAGMENT RBC FLAG 0 (0-99); HEMATOCRIT 25.5 % (38.0-47.0); HEMOGLOBIN 8.1 g/dL (12.6-16.3); LEFT SHIFT FLG 0 (0-99); LIPEMIA HEMOLYSIS FLAG 80 (0-99); MEAN CELL HEMOGLOBIN 30.3 pg (27.9-34.1); MEAN CELL HEMOGLOBIN CONCENTR. 31.8 g/dL (32.4-36.7); MEAN CELL VOLUME 95.5 fL (81.5-99.8); MEAN PLATELET VOLUME 9.3 fL (8.7-11.7); PLATELET CLUMPS FLAG 0 (0-99); PLATELET COUNT 219 10^3/uL (150-400); RED BLOOD CELL COUNT 2.67 10^6/uL (4.18-5.33); RED CELL DISTRIBUTION WIDTH 13.6 % (11.5-15.2)
[2017-07-09 05:17] LABS: ANION GAP 6 mEq/L (8-16); CALCIUM 8.8 mg/dL (8.5-10.4); CARBON DIOXIDE 23 mEq/l (22-31); CHLORIDE 98 mEq/L (97-110); CREATININE 0.6 mg/dL (0.6-1.0); GLOMERULAR FILTRATION RATE > 60; GLUCOSE 89 mg/dL (70-100); POTASSIUM 4.1 mEq/L (3.5-5.2); SODIUM 127 mEq/L (134-144)
[2017-07-09] MEDS: LEVOTHYROXINE 88 MCG TAB PO SCH (06:26)
[2017-07-09] MEDS: SALMETEROL DISKUS MDI IH SCH ×2 (08:15→21:19)
[2017-07-09] MEDS: TIOTROPIUM INHALER 18 MCG/DOSE 5 DOSE/MDI IH SCH (08:16)
[2017-07-09] MEDS: LORazepam 0.5 MG TAB PO SCH ×2 (08:45→20:48)
[2017-07-09] MEDS: PANTOPRAZOLE SODIUM 40 MG TAB PO SCH (08:46)
[2017-07-09] MEDS: SERTRALINE HCL 50 MG TAB PO SCH (08:46)
[2017-07-09] MEDS: SENNOSIDES/DOCUSATE SODIUM TAB PO SCH ×2 (08:46→20:47)
[2017-07-09] MEDS: GABAPENTIN 100 MG CAP PO SCH ×2 (08:46→20:47)
[2017-07-09] MEDS ORDERED: ACETAMINOPHEN/CODEINE 300/30MG TAB PO PRN ×2 (09:10→11:15)
--- NOTE | 2017-07-09 09:18 | SOAPPROG ---
SOAP Progress Note Assessment/Plan: Assessment/Plan: R femoral neck fracture s/p R hip hemiarthroplasty POD#1 - Pt is bedbound - Continue pain control, codeine #3 ordered - Posterior hip precautions - Ice on the area for comfort - Okay to start VTE chemoprophylaxis per medicine team - Keep drain intact, monitor output - Dressing change will be done tomorrow - Call with any questions or concerns Plan: 07/08/17 08:18 07/09/17 09:15 Subjective: Pt is sleeping, but follows some commands. Per nurse report she was stable overnight. Objective: Vital Signs Temp Pulse Resp BP Pulse Ox 37.4 C 88 12 97/46 L 96 07/09/17 07:21 07/09/17 08:17 07/09/17 08:17 07/09/17 07:21 07/09/17 08:17 Laboratory Results 07/09/17 04:21 07/09/17 04:21 07/08/17 07/09/17 07/10/17 05:59 05:59 05:59 Intake Total 1750 Balance 1750 PT 14.3 SEC (12.0-15.0) 07/07/17 01:02 INR 1.12 (0.83-1.16) 07/07/17 01:02 Physical Exam - Physical Exam General Appearance: no apparent distress, other (sleeping, some ability to follow commands) Cardiac/Chest: normal peripheral pulses Skin: normal color, warm/dry, other (post-operative dressing c/d/i, drain intact ) Extremities: normal inspection, other (pt is able to move her feet well), No pedal edema, No calf tenderness, No swelling, No Leah's sign Neuro/Psych: no motor/sensory deficits, No oriented x 3 ICD10 Worksheet Patient Problems: Problems Problem Status Onset Hip fracture, right Acute Urinary tract infection Acute Tibial fracture Acute
[2017-07-09] MEDS: POLYETHYLENE GLYCOL 3350 17 GM PKT PO SCH (13:57)
--- NOTE | 2017-07-09 14:54 | HOSPPROG ---
Hospitalist Progress Note Assessment/Plan: Patient is an 86-year-old female with advanced dementia who had been complaining of leg pain. It was noted that she had a right femoral hip fracture. She will be going to OR today. * right femoral hip fracture POD #1 right hip hemiarthroplasty * urinary tract infection cx shows e coli Ceftriaxone * advanced dementia suspect she is at her baseline * hypothyroidism resumed Synthroid * hyponatremia Na is 127 trending down/check urine studies #Pain due to the above will order scheduled Tylenol and prn meds * hypertension stable *questionable hx of CHF will monitor for any signs of failure *anemia decreased h/h after surgery will follow *DVT prophylaxis LMWH Subjective: Pham says she is in pain. Objective: Vital Signs Temp Pulse Resp BP Pulse Ox 37.4 C 87 16 109/54 L 96 07/09/17 07:21 07/09/17 12:00 07/09/17 12:00 07/09/17 12:00 07/09/17 12:00 Laboratory Results 07/09/17 04:21 07/09/17 04:21 07/08/17 07/09/17 07/10/17 05:59 05:59 05:59 Intake Total 1750 Balance 1750 PT 14.3 SEC (12.0-15.0) 07/07/17 01:02 INR 1.12 (0.83-1.16) 07/07/17 01:02 - Physical Exam Constitutional: appears nourished, chronically ill appearing, uncomfortable, No not in pain Ears, Nose, Mouth, Throat: hard of hearing Cardiovascular: regular rate and rhythym Respiratory: no respiratory distress, reduced air movement Gastrointestinal: normoactive bowel sounds Skin: warm, other (right hip w swelling), No normal color (pale) Musculoskeletal: muscular tenderness Neurologic: other (alert) Psychiatric: poor judgement, poor memory ICD10 Worksheet Patient Problems: Problems Problem Status Onset Hip fracture, right Acute Urinary tract infection Acute Tibial fracture Acute
[2017-07-09] MEDS: ENOXAPARIN 40 MG/0.4 ML SYR SC SCH (15:42)
[2017-07-09] MEDS: HYDROmorphONE/DILAUDID 2 MG TAB PO PRN (15:44)
[2017-07-09] MEDS: ACETAMINOPHEN 500 MG TAB PO SCH (20:59)
[2017-07-10] MEDS: LEVOTHYROXINE 88 MCG TAB PO SCH (06:10)
--- NOTE | 2017-07-10 08:55 | HOSPPROG ---
Hospitalist Progress Note Assessment/Plan: Patient is an 86-year-old female with advanced dementia who had been complaining of leg pain. It was noted that she had a right femoral hip fracture. * right femoral hip fracture POD #2 right hip hemiarthroplasty * urinary tract infection cx shows e coli Ceftriaxone #3 * advanced dementia suspect she is at her baseline * hypothyroidism resumed Synthroid * hyponatremia Na is 127 trending down/urine Na low/ will hydrate #Pain due to the above will order scheduled Tylenol and prn meds * hypertension stable *questionable hx of CHF will monitor for any signs of failure *anemia decreased h/h after surgery *DVT prophylaxis LMWH *spoke with nursing staff/ labs not available this morning due to patient being a diff stick/ they will retry , in meantime will give fluids Subjective: Pham said everything hurts but especially her hip. Objective: Vital Signs Temp Pulse Resp BP Pulse Ox 37 C 77 16 103/44 L 96 07/10/17 08:00 07/10/17 08:00 07/10/17 08:00 07/10/17 08:00 07/10/17 08:00 Laboratory Results 07/09/17 04:21 07/09/17 04:21 07/09/17 07/10/17 07/11/17 05:59 05:59 05:59 Intake Total 1750 500 Output Total 530 300 Balance 1750 -30 -300 PT 14.3 SEC (12.0-15.0) 07/07/17 01:02 INR 1.12 (0.83-1.16) 07/07/17 01:02 - Physical Exam Constitutional: chronically ill appearing, uncomfortable, No not in pain Eyes: PERRL Ears, Nose, Mouth, Throat: hard of hearing Cardiovascular: regular rate and rhythym Respiratory: no respiratory distress, reduced air movement Skin: warm, other (right hip with swelling) Neurologic: other (alert and oriented to herself) Psychiatric: anxious, poor memory ICD10 Worksheet Patient Problems: Problems Problem Status Onset Hip fracture, right Acute Urinary tract infection Acute Tibial fracture Acute
[2017-07-10] MEDS: PANTOPRAZOLE SODIUM 40 MG TAB PO SCH (10:16)
[2017-07-10] MEDS: ACETAMINOPHEN 500 MG TAB PO SCH ×3 (10:16→21:23)
[2017-07-10] MEDS: SERTRALINE HCL 50 MG TAB PO SCH (10:16)
[2017-07-10] MEDS: LORazepam 0.5 MG TAB PO SCH ×2 (10:17→21:23)
[2017-07-10] MEDS: GABAPENTIN 100 MG CAP PO SCH ×2 (10:18→21:23)
[2017-07-10] MEDS: ENOXAPARIN 40 MG/0.4 ML SYR SC SCH (10:21)
[2017-07-10 10:23] LABS: ANION GAP 6 mEq/L (8-16); CARBON DIOXIDE 23 mEq/l (22-31); CHLORIDE 99 mEq/L (97-110); CREATININE 0.5 mg/dL (0.6-1.0); GLOMERULAR FILTRATION RATE > 60; GLUCOSE 91 mg/dL (70-100); SODIUM 128 mEq/L (134-144)
[2017-07-10] MEDS: SENNOSIDES/DOCUSATE SODIUM TAB PO SCH ×2 (10:25→21:24)
[2017-07-10] MEDS: POLYETHYLENE GLYCOL 3350 17 GM PKT PO SCH (10:25)
[2017-07-10] MEDS: TIOTROPIUM INHALER 18 MCG/DOSE 5 DOSE/MDI IH SCH (10:49)
[2017-07-10] MEDS: SALMETEROL DISKUS MDI IH SCH ×2 (10:49→22:43)
--- NOTE | 2017-07-10 10:49 | SOAPPROG ---
SOAP Progress Note Assessment/Plan: Assessment/Plan: R femoral neck fracture s/p R hip hemiarthroplasty performed by Dr. Petersen, POD#2 - Continue pain control, codeine #3 ordered - Cont PT/PT, Posterior hip precautions, pt is bedbound at [facility] - Ice on the area for comfort - Lovenox for VTE chemoprophylaxis per medicine team - SCD and TEDs in place for VTE mechanical prophylaxis - Cont to monitor H/H, await redraw labs from this am - OK to d/c from ortho standpoint pending successful pain management, and stable H/H - Call with any questions or concerns 07/10/17 10:49 Subjective: Pt seen at bedside. This is my first encounter with the patient. She complains of generalized pain, more so in her right hip. This appears to be at baseline for her cognition and agitation level per nursing report. She denies any new complaints, as well as post calf pain bilat. Per nursing report, tolerating diet and medications well. No additional concerns or complaints at this time. Kyle transfer back to [facility] when cleared by medicine service. Objective: Vital Signs Temp Pulse Resp BP Pulse Ox 37 C 77 16 103/44 L 96 07/10/17 08:00 07/10/17 08:00 07/10/17 08:00 07/10/17 08:00 07/10/17 08:00 Laboratory Results 07/09/17 04:21 07/10/17 10:00 07/09/17 07/10/17 07/11/17 05:59 05:59 05:59 Intake Total 1750 500 Output Total 530 300 Balance 1750 -30 -300 PT 14.3 SEC (12.0-15.0) 07/07/17 01:02 INR 1.12 (0.83-1.16) 07/07/17 01:02 Pt seen at bedside. VSS. Exam of LRE reveals intact dressing, no significant drainage, significant surrounding erythema, calor, discharge or induration noted. Intact enrique. Thigh compartment is supple. Intact abduction pillow. Post calves are NTTP, no palpable vascular cords, neg Leah's bilat. DNVI BLE. ICD10 Worksheet Patient Problems: Problems Problem Status Onset Hip fracture, right Acute Urinary tract infection Acute Tibial fracture Acute
[2017-07-10] MEDS: METHOCARBAMOL 750 MG TAB PO PRN ×2 (11:45→16:17)
[2017-07-10] MEDS: HYDROmorphONE/DILAUDID 2 MG TAB PO PRN ×2 (11:45→16:17)
[2017-07-10 16:49] LABS: % IMMATURE GRANULYOCYTES 0.5 % (0.0-1.1); ABSOLUTE IMMATURE GRANULOCYTES 0.03 10^3/uL (0.00-0.10); ADD DIFF? NO; ADD MORPH? NO; ADD SCAN? NO; ATYPICAL LYMPHOCYTE FLAG 0 (0-99); FRAGMENT RBC FLAG 0 (0-99); HEMOGLOBIN 7.6 g/dL (12.6-16.3); LEFT SHIFT FLG 0 (0-99); LIPEMIA HEMOLYSIS FLAG 80 (0-99); MEAN CELL HEMOGLOBIN 30.3 pg (27.9-34.1); MEAN CELL HEMOGLOBIN CONCENTR. 31.7 g/dL (32.4-36.7); MEAN CELL VOLUME 95.6 fL (81.5-99.8); MEAN PLATELET VOLUME 9.6 fL (8.7-11.7); PLATELET CLUMPS FLAG 10 (0-99); PLATELET COUNT 239 10^3/uL (150-400); RED BLOOD CELL COUNT 2.51 10^6/uL (4.18-5.33); RED CELL DISTRIBUTION WIDTH 13.5 % (11.5-15.2)
[2017-07-10] MEDS ORDERED: diphenhydrAMINE 25 MG CAP PO PRN (21:35)
[2017-07-11] MEDS: METHOCARBAMOL 750 MG TAB PO PRN ×3 (03:24→15:19)
[2017-07-11] MEDS: LEVOTHYROXINE 88 MCG TAB PO SCH (05:57)
[2017-07-11 06:05] LABS: ANION GAP 8 mEq/L (8-16); CALCIUM 9.3 mg/dL (8.5-10.4); CARBON DIOXIDE 24 mEq/l (22-31); CHLORIDE 99 mEq/L (97-110); CREATININE 0.6 mg/dL (0.6-1.0); GLOMERULAR FILTRATION RATE > 60; GLUCOSE 89 mg/dL (70-100); POTASSIUM 4.5 mEq/L (3.5-5.2); SODIUM 131 mEq/L (134-144)
[2017-07-11] MEDS: HYDROmorphONE/DILAUDID 2 MG TAB PO PRN ×2 (09:11→15:18)
[2017-07-11] MEDS: ACETAMINOPHEN 500 MG TAB PO SCH ×3 (09:14→21:35)
[2017-07-11] MEDS: LORazepam 0.5 MG TAB PO SCH ×2 (09:15→21:37)
[2017-07-11] MEDS: SERTRALINE HCL 50 MG TAB PO SCH (09:16)
[2017-07-11] MEDS: GABAPENTIN 100 MG CAP PO SCH ×2 (09:16→21:37)
[2017-07-11] MEDS: PANTOPRAZOLE SODIUM 40 MG TAB PO SCH (09:17)
[2017-07-11] MEDS: SENNOSIDES/DOCUSATE SODIUM TAB PO SCH ×2 (09:17→22:44)
[2017-07-11] MEDS: ENOXAPARIN 40 MG/0.4 ML SYR SC SCH (09:17)
[2017-07-11] MEDS: POLYETHYLENE GLYCOL 3350 17 GM PKT PO SCH (09:18)
[2017-07-11] MEDS: TIOTROPIUM INHALER 18 MCG/DOSE 5 DOSE/MDI IH SCH (09:21)
[2017-07-11] MEDS: SALMETEROL DISKUS MDI IH SCH ×2 (09:21→20:19)
--- NOTE | 2017-07-11 11:31 | HOSPPROG ---
Hospitalist Progress Note Assessment/Plan: Patient is an 86-year-old female with advanced dementia who had been complaining of leg pain. It was noted that she had a right femoral hip fracture. * right femoral hip fracture s/p right hip hemiarthroplasty * urinary tract infection cx shows e coli Received treatment ceftriaxone, will discontinue * advanced dementia suspect she is at her baseline * hypothyroidism resumed Synthroid * hyponatremia Na is 131 Improved with fluids * anemia continues to trend down has intermittent hypotension spoke to her son/ he would like a blood transfusion #Pain due to the above will order scheduled Tylenol and prn meds Robaxin has helped significantly * hypertension stable *questionable hx of CHF will monitor for any signs of failure *anemia decreased h/h after surgery *DVT prophylaxis LMWH *Plan: will give a unit of PRBC's, plan to dc tomorrow if stable. Reviewed her care with orthopedics/ they would like dvt prophylaxis for 21 days after surgery , and then aspirin therapy (she is allergic to asa)/ consider longer treatment w Lovenox due to her decreased ability to walk and move. For any questions, contact her son, Merlin/ [phone] [facility] Subjective: Pham says everything hurts. Objective: Vital Signs Temp Pulse Resp BP Pulse Ox 36.8 C 78 16 108/64 96 07/10/17 23:56 07/11/17 09:22 07/11/17 09:22 07/10/17 23:56 07/11/17 09:22 Laboratory Results 07/10/17 16:20 07/11/17 05:27 07/10/17 07/11/17 07/12/17 05:59 05:59 05:59 Intake Total 500 300 Output Total 530 600 Balance -30 -300 PT 14.3 SEC (12.0-15.0) 07/07/17 01:02 INR 1.12 (0.83-1.16) 07/07/17 01:02 - Physical Exam Constitutional: chronically ill appearing, uncomfortable, No not in pain Eyes: PERRL Ears, Nose, Mouth, Throat: hard of hearing Cardiovascular: regular rate and rhythym Respiratory: no respiratory distress Gastrointestinal: normoactive bowel sounds Skin: warm, other (right hip with swelling), No normal color (pale) Musculoskeletal: generalized weakness Neurologic: other (alert) ICD10 Worksheet Patient Problems: Problems Problem Status Onset Hip fracture, right Acute Urinary tract infection Acute Tibial fracture Acute
--- NOTE | 2017-07-11 11:32 | SOAPPROG ---
SOAP Progress Note Assessment/Plan: Assessment/Plan: R femoral neck fracture s/p R hip hemiarthroplasty performed by Dr. Petersen, POD#3 - Continue pain control - Cont PT/PT, Posterior hip precautions, pt is bedbound at SNF - Cont ice on the area for comfort - Lovenox for VTE chemoprophylaxis per medicine team, rec 4 wks post op anticoagulation - SCD and TEDs in place for VTE mechanical prophylaxis - Cont to monitor H/H, may rec transfusion per medicine prior to d/c - OK to d/c from ortho standpoint pending successful pain management, and stable H/H - Call with any questions or concerns 07/11/17 11:31 Subjective: Pt seen at bedside. Resting comfortably. Awoken for exam. States she hurts "all over", but does state her RLE is improved. She follows commands well, limited ability to answer questions with consistent responses. Per nursing report, pt is improved today. She has been tolerating her medications well, and appears to be more comfortable. Sodium is improved. No significant drainage from the surgical site, and swelling is decreased. Possible d/c back to [facility] today pending medicine approval. No additional concerns or complaints at this time. Objective: Vital Signs Temp Pulse Resp BP Pulse Ox 36.8 C 78 16 108/64 96 07/10/17 23:56 07/11/17 09:22 07/11/17 09:22 07/10/17 23:56 07/11/17 09:22 Laboratory Results 07/10/17 16:20 07/11/17 05:27 07/10/17 07/11/17 07/12/17 05:59 05:59 05:59 Intake Total 500 300 Output Total 530 600 Balance -30 -300 PT 14.3 SEC (12.0-15.0) 07/07/17 01:02 INR 1.12 (0.83-1.16) 07/07/17 01:02 Pt seen at bedside, awoken for exam. VSS. Exam of RLE reveals dressing CDI, no significant drainage, significant surrounding erythema, calor, discharge or induration noted. Intact enrique. Thigh compartment is supple, swelling decreased, no significant ecchymosis noted. Intact abduction pillow. SCDs and TEDs are in place. Post calves are NTTP, no palpable vascular cords, neg Leah' s bilat. DNVI BLE. ICD10 Worksheet Patient Problems: Problems Problem Status Onset Hip fracture, right Acute Urinary tract infection Acute Tibial fracture Acute
[2017-07-11 12:04] LABS: HEMATOCRIT 23.8 % (38.0-47.0); HEMOGLOBIN 7.5 g/dL (12.6-16.3)
[2017-07-11] MEDS ORDERED: ACETAMINOPHEN 325 MG TAB PO ONE (13:15)
--- NOTE | 2017-07-11 16:27 | ASMTCMCOM ---
CM Note CM Note Notes: Per Alisa Coley, pt should be ready to DC tomorrow back to [facility]. Date Signed: 07/11/2017 04:26 PM Electronically Signed By:Anali Murphy
[2017-07-12] MEDS: HYDROmorphONE/DILAUDID 1 MG/ML SYR IVP PRN ×2 (03:43→06:43)
[2017-07-12] MEDS: METHOCARBAMOL 750 MG TAB PO PRN (06:06)
[2017-07-12] MEDS: LEVOTHYROXINE 88 MCG TAB PO SCH (06:06)
[2017-07-12] MEDS: ACETAMINOPHEN 500 MG TAB PO SCH (09:33)
[2017-07-12] MEDS: PANTOPRAZOLE SODIUM 40 MG TAB PO SCH (09:33)
[2017-07-12] MEDS: ENOXAPARIN 40 MG/0.4 ML SYR SC SCH (09:33)
[2017-07-12] MEDS: LORazepam 0.5 MG TAB PO SCH (09:34)
[2017-07-12] MEDS: GABAPENTIN 100 MG CAP PO SCH (09:34)
[2017-07-12] MEDS: SERTRALINE HCL 50 MG TAB PO SCH (09:34)
[2017-07-12] MEDS: SENNOSIDES/DOCUSATE SODIUM TAB PO SCH (09:35)
[2017-07-12] MEDS: POLYETHYLENE GLYCOL 3350 17 GM PKT PO SCH (09:35)
[2017-07-12] MEDS: TIOTROPIUM INHALER 18 MCG/DOSE 5 DOSE/MDI IH SCH (11:17)
[2017-07-12] MEDS: SALMETEROL DISKUS MDI IH SCH (11:17)
--- NOTE | 2017-07-12 11:23 | PDIAF ---
- Diagnosis Diagnosis: R hip fracture s/p repair, severe dementia, UTI Code Status: Do Not Resuscitate - Medication Management Discharge Medications: Medications to Continue on Transfer Acetaminophen [Tylenol 325mg (*)] 650 mg PO Q6HRS PRN 05/30/15 [Last Taken Unknown] Bisacodyl [Bisacodyl (*)] 5 mg PO DAILY PRN 05/30/15 [Last Taken Unknown] Ergocalciferol [Vitamin D2 (*)] 50,000 units PO Q30D 05/30/15 [Last Taken ] Estring 2 Mg Insert 2 mg VG .Q3MOS 05/30/15 [Last Taken Unknown] Ketoconazole 2% [Nizoral Shampoo (*)] 1 nela TP DAILY PRN 05/30/15 [Last Taken Unknown] LORazepam [Ativan (*)] 0.25 mg PO DAILY 05/30/15 [Last Taken Unknown] LORazepam [Ativan (*)] 0.5 mg PO HS 05/30/15 [Last Taken Unknown] Levothyroxine [Synthroid 88 mcg (*)] 88 mcg PO DAILY06 05/30/15 [Last Taken Unknown] Magnesium Hydroxide/Al Hydrox [Mylanta Liquid] 30 ml PO DAILY PRN 05/30/15 [ Last Taken Unknown] Omeprazole [Prilosec 20 mg] 20 mg PO DAILY 05/30/15 [Last Taken Unknown] Trimethoprim 200 mg PO DAILY 05/30/15 [Last Taken Unknown] traZODone [traZODONE 50MG (*)] 25 mg PO HS 05/30/15 [Last Taken Unknown] Bisacodyl [Dulcolax] 10 mg RC DAILY PRN 07/07/17 [Last Taken Unknown] Furosemide [Lasix 20 MG (*)] 20 mg PO DAILY 07/07/17 [Last Taken Unknown] Gabapentin [Neurontin 100 MG (*)] 100 mg PO BID 07/07/17 [Last Taken Unknown] HYDROmorphone HCL [Dilaudid 2 mg (*)] 2 mg PO BID PRN 07/07/17 [Last Taken Unknown] HYDROmorphone HCL [Dilaudid 2 mg (*)] 2 mg PO DAILY 07/07/17 [Last Taken Unknown ] Ipratropium/Albuterol [Duoneb (*)] 3 ml IH Q4HRS PRN 07/07/17 [Last Taken Unknown] Ondansetron HCl [Zofran] 4 mg PO Q8HRS PRN 07/07/17 [Last Taken Unknown] Salmeterol Diskus [Serevent Diskus (*)] 1 puffs IH BID 07/07/17 [Last Taken Unknown] Sertraline HCl [Zoloft 50mg (*)] 75 mg PO DAILY 07/07/17 [Last Taken Unknown] Tiotropium Inhaler [Spiriva Inhaler (RX)] 1 inh IH DAILY 07/07/17 [Last Taken Unknown] guaiFENesin/DEXTROMETHORPHAN [Robitussin Dm Oral Liquid (*)] 10 ml PO Q4HRS PRN 07/07/17 [Last Taken Unknown] rOPINIRole HCL [Requip 1mg (*)] 1 mg PO BID 07/07/17 [Last Taken Unknown] Enoxaparin [Lovenox 40 MG (*)] 40 mg SC DAILY #21 syr 07/12/17 [Last Taken Unknown] Methocarbamol [Robaxin 750 mg (*)] 750 mg PO TID PRN #0 tab 07/12/17 [Last Taken Unknown] Polyethylene Glycol 3350 [Miralax 17 gm (*)] 17 gm PO DAILY PRN #30 07/12/17 [ Last Taken Unknown] Sennosides/Docusate Sodium [Senokot-S] 1 each PO BID PRN #60 07/12/17 [Last Taken Unknown] Hvac Lead Antibiotics: NA Discharge Medications: Refer to the Discharge Home Medication list for PRN reason. PICC Care - Routine: N/A - Orders Services needed: Registered Nurse, Certified Instructor Modeling, Master Information Security Consultant , Physical Therapy, Occupational Therapy Oxygen: 3L [place] Diet Recommendation: no restrictions on diet Weigh Patient: weekly Hirsch: Not applicable Larry Stockings Discontinue Date: while in bed Wound Care Instructions: keep surgical area clean and dry Sutures/[place] Site: R hip Activity/Weight Bearing Restrictions: posterior hip precautions - Follow Up Care Current Providers and Referrals: Patient,NotPresent [Unknown] - As per Instructions Richmond Petersen MD [Medical Doctor] - (Pt is to follow up 10-14 days post operatively, or sooner with any additional concerns or complaints. She is encouraged to contact the office as soon as possible to schedule this appointment.)
[2017-07-12 11:31] VITALS: BP 110/56; TEMP 98.3
--- NOTE | 2017-07-12 11:39 | ASMTCMCOM ---
CM Note CM Note Notes: Patient has been discharged and will return to [facility]. Contacted her son Merlin and let him know that transport would be arriving at 1:00 PM. [facility] was set up by [facility]. Date Signed: 07/12/2017 11:39 AM Electronically Signed By:Dottie Desouza
[2017-07-12] MEDS: HYDROmorphONE/DILAUDID 2 MG TAB PO PRN (11:56)
[2017-07-12 12:07] VITALS: PULSE 72; RESP 14; O2SAT 98
--- NOTE | 2017-07-12 12:34 | PDIAF ---
- Diagnosis Diagnosis: R hip fracture s/p repair, severe dementia, UTI Code Status: Do Not Resuscitate - Medication Management Discharge Medications: Medications to Continue on Transfer Acetaminophen [Tylenol 325mg (*)] 650 mg PO Q6HRS PRN 05/30/15 [Last Taken Unknown] Bisacodyl [Bisacodyl (*)] 5 mg PO DAILY PRN 05/30/15 [Last Taken Unknown] Ergocalciferol [Vitamin D2 (*)] 50,000 units PO Q30D 05/30/15 [Last Taken ] Estring 2 Mg Insert 2 mg VG .Q3MOS 05/30/15 [Last Taken Unknown] Ketoconazole 2% [Nizoral Shampoo (*)] 1 nela TP DAILY PRN 05/30/15 [Last Taken Unknown] LORazepam [Ativan (*)] 0.25 mg PO DAILY 05/30/15 [Last Taken Unknown] LORazepam [Ativan (*)] 0.5 mg PO HS 05/30/15 [Last Taken Unknown] Levothyroxine [Synthroid 88 mcg (*)] 88 mcg PO DAILY06 05/30/15 [Last Taken Unknown] Magnesium Hydroxide/Al Hydrox [Mylanta Liquid] 30 ml PO DAILY PRN 05/30/15 [ Last Taken Unknown] Omeprazole [Prilosec 20 mg] 20 mg PO DAILY 05/30/15 [Last Taken Unknown] Trimethoprim 200 mg PO DAILY 05/30/15 [Last Taken Unknown] traZODone [traZODONE 50MG (*)] 25 mg PO HS 05/30/15 [Last Taken Unknown] Bisacodyl [Dulcolax] 10 mg RC DAILY PRN 07/07/17 [Last Taken Unknown] Furosemide [Lasix 20 MG (*)] 20 mg PO DAILY 07/07/17 [Last Taken Unknown] Gabapentin [Neurontin 100 MG (*)] 100 mg PO BID 07/07/17 [Last Taken Unknown] HYDROmorphone HCL [Dilaudid 2 mg (*)] 2 mg PO BID PRN 07/07/17 [Last Taken Unknown] HYDROmorphone HCL [Dilaudid 2 mg (*)] 2 mg PO DAILY 07/07/17 [Last Taken Unknown ] Ipratropium/Albuterol [Duoneb (*)] 3 ml IH Q4HRS PRN 07/07/17 [Last Taken Unknown] Ondansetron HCl [Zofran] 4 mg PO Q8HRS PRN 07/07/17 [Last Taken Unknown] Salmeterol Diskus [Serevent Diskus (*)] 1 puffs IH BID 07/07/17 [Last Taken Unknown] Sertraline HCl [Zoloft 50mg (*)] 75 mg PO DAILY 07/07/17 [Last Taken Unknown] Tiotropium Inhaler [Spiriva Inhaler (RX)] 1 inh IH DAILY 07/07/17 [Last Taken Unknown] guaiFENesin/DEXTROMETHORPHAN [Robitussin Dm Oral Liquid (*)] 10 ml PO Q4HRS PRN 07/07/17 [Last Taken Unknown] rOPINIRole HCL [Requip 1mg (*)] 1 mg PO BID 07/07/17 [Last Taken Unknown] Enoxaparin [Lovenox 40 MG (*)] 40 mg SC DAILY #21 syr 07/12/17 [Last Taken Unknown] Methocarbamol [Robaxin 750 mg (*)] 750 mg PO TID PRN #0 tab 07/12/17 [Last Taken Unknown] Polyethylene Glycol 3350 [Miralax 17 gm (*)] 17 gm PO DAILY PRN #30 07/12/17 [ Last Taken Unknown] Sennosides/Docusate Sodium [Senokot-S] 1 each PO BID PRN #60 07/12/17 [Last Taken Unknown] Valet Parking Attendant Antibiotics: NA Discharge Medications: Refer to the Discharge Home Medication list for PRN reason. PICC Care - Routine: N/A - Orders Services needed: Registered Nurse, Certified Speech Professor, Master Front Clerk , Physical Therapy, Occupational Therapy Oxygen: 3L NC Diet Recommendation: no restrictions on diet Weigh Patient: weekly Hirsch: Not applicable Larry Stockings Discontinue Date: while in bed Wound Care Instructions: keep surgical area clean and dry Sutures/[place] Site: R hip Activity/Weight Bearing Restrictions: posterior hip precautions Equipment: pressure offloading boots, bilaterally Additional: pressure offload bilat heels - Follow Up Care Current Providers and Referrals: Richmond Petersen MD [Medical Doctor] - (Pt is to follow up 10-14 days post operatively, or sooner with any additional concerns or complaints. She is encouraged to contact the office as soon as possible to schedule this appointment.) Patient,NotPresent [Unknown] - As per Instructions
--- NOTE | 2017-07-12 13:00 | ASMTCMCOM ---
CM Note CM Note Notes: This Packerhead Machine Operator Faxed an updated Interagency Order form to [facility] and spoke to Admissions about the changes. Date Signed: 07/12/2017 01:00 PM Electronically Signed By:Dottie Desouza
--- NOTE | 2017-07-12 16:04 | PDDCSUM ---
Discharge Summary Discharge Summary: DISCHARGE SUMMARY FOLLOW-UP ITEMS: Follow-up at Dr. Petersen office next week DATE OF ADMISSION: 07/07/2017 DATE OF DISCHARGE: 07/12/2017 DISCHARGE DIAGNOSES: 1. Acute right femoral/hip fracture 2. Acute urinary tract infection with E coli 3. Chronic severe dementia 4. Acute hyponatremia 5. Acute blood loss anemia 6. Chronic diastolic congestive heart failure with chronic hypoxic respiratory failure 7. Suspected atelectasis 8. Chronic pain with continuous opiate dependency CONSULTATIONS: General surgery for trauma, orthopedic surgery with Dr. Richmond Petersen PROCEDURES / IMAGING: Right hip hemiarthroplasty CHIEF COMPLAINT: Acute leg pain SUBJECTIVE: Patient is moving her bowels at time of discharge, pain is controlled PHYSICAL EXAM ON DISCHARGE: Systolic blood pressure 110, heart rate 70, afebrile overnight, satting well on 3 L nasal cannula, alert awake oriented times 0, patient is able to make some verbal expression of how she is feeling, bowel sounds are present, abdomen is soft nontender, lungs are clear with the exception of some inspiratory crackles in the bilateral bases, no expiratory wheezes, heart rhythm is regular, no lower extremity edema LABS ON DISCHARGE: Hemoglobin 9, urine culture demonstrating 100,000 E coli resistant to Levaquin HOSPITAL COURSE BY PROBLEM: 1. Acute right femoral/hip fracture. Patient presented with leg pain, most likely secondary to fracture, traumatic fall. The patient's family requested surgical intervention, and right hemiarthroplasty was performed by Dr. Richmond Petersen. Patient is on posterior hip precautions, she should have outpatient follow-up with Orthopedics. She will have DVT prophylaxis for the next 3 weeks of Lovenox 40 mg daily. 2. Acute urinary tract infection. Secondary to E coli, sensitive to cephalosporins, received 5 days of treatment, discontinued prior to discharge. 3. Chronic severe dementia. Patient is disoriented at baseline, requires full assistance with ADLs comma her risk of worsening morbidity and mortality in the setting of hip fracture was fully presented to the patient's family, the decision was made to proceed with surgery. Patient's risk of failure to participate with therapy modalities is high, suspect that she will have a high short-term mortality risk, recommend outpatient palliative care. 4. Acute blood loss anemia. Patient experienced blood loss with hemoglobin level of 7.5, and reduced baseline of around 10, received 1 unit PRBCs, hemoglobin stable at time of discharge. Her underlying anemia is most likely secondary to chronic inflammatory disease. 5. Acute hyponatremia. Secondary to poor oral intake, received IV fluids, serum sodium level improved prior to discharge. 6. Chronic hypoxic respiratory failure with chronic diastolic congestive heart failure. No evidence of acute exacerbation, patient remained on supplemental oxygen during this hospitalization. 7. Suspected atelectasis. Secondary to immobility, patient is mostly bed-bound at baseline, incentive spirometer encouraged, remain on supplemental oxygen. Chronic pain with continuous opiate dependency. Patient was continued on her home dosage of Dilaudid as well as p.r.n. pain medications post hip surgery DISCHARGE MEDICATIONS: Please see official discharge medication reconciliation sheet in chart , pain medications as needed. DISCHARGE INSTRUCTIONS: Please follow up with Dr. Richmond Petersen as instructed. Please arrange outpatient palliative care consultation. TIME SPENT: Greater than 30 minutes were spent on direct patient care, as well as discharge planning and preparation.
--- NOTE | 2017-07-12 17:07 | ASDISCHSUM ---
Discharge Information Plan Status:SNF Medically Cleared to Leave:07/12/2017 Discharge Date:07/12/2017 12:53 PM D/C Disposition:Snf Facility ADT D/C Disposition:Snf Facility Projected Discharge Date:07/12/2017 01:00 PM Transportation at D/C:ALS/BLS Discharge Delay Reason: Follow-Up Date:07/12/2017 01:00 PM Discharge Slot: Final Diagnosis:Right Hip Fx/repair; Severe dementia, UTI Placement Information Referral Type:*Senior Living/SNF Referral ID:[id number] Provider Name:[facility] Address 1:[address] Address 2: City:[place] Selection Factors: State:[place] Referral Type:*Senior Living/SNF Referral ID:[id number] Provider Name:[facility] Address 1:[address] Address 2: City:[place] Selection Factors: State:[place] Patient Contact Information Contact Name:NOAH Relationship:Levi Address:[address] Work Phone: City:[place] Alternate Phone: State/Zip Code:[place] [address] Email: Financial Information Financial Class: Primary Plan Desc:MEDICARE INPATIENT Primary Plan Number:[id number] Secondary Plan Desc:MEDICA[place] Secondary Plan Number:[id number] Assessment Information [facility] Initial CM Assessment Living Arrangements What is your living Answers: Alone arrangement? Who do you live with? Type Of Residence What kind of residence do Answers: Snf Facility you live in? Type of Residence Facility Name Notes: [facility] Case Management Evaluation Psychosocial Needs: Answers: Behavioral Health Issue Notes: Dementia Discharge Plan Comments Coordination Status Comments Notes: Chart reviewed; met w/ son and pt. Pt admitted w/ right femoral hip fracture after falling, according to son. Pt has advanced dementia. Pt will have surgery today. Spoke w/ BENJAMIN Eldridge. Reports that pt will most likely transfer to ortho/neuro. Pt resides at [facility]. CM called [facility] and left [facility] for financial aid director/requesting a call back to discuss case. CM to follow. Date Signed: 07/07/2017 10:48 AM Electronically Signed By:Skye Darby [facility] Progress Note CM Note CM Note Notes: Son suspecting that pt fell at [facility]. CM recieved call from BENJAMIN Barboza at [facility]. According to Tamra there have not been any falls that have been reported. Tamra is in the process of interviewing staff that had direct contact w/ pt. CM updated son regarding conversation w/ Tamra. Son to follow up with Tamra. Date Signed: 07/07/2017 04:38 PM Electronically Signed By:Skye Darby [facility] Progress Note CM Note CM Note Notes: Per Alisa Coley, pt should be ready to DC tomorrow back to [facility]. Date Signed: 07/11/2017 04:26 PM Electronically Signed By:Anali Murphy [facility] CM Progress Note CM Note CM Note Notes: Patient has been discharged and will return to [facility]. Contacted her son Merlin and let him know that transport would be arriving at 1:00 PM. [facility] was set up by [facility]. Date Signed: 07/12/2017 11:39 AM Electronically Signed By:Dottie Desouza [facility] CM Progress Note CM Note CM Note Notes: This Radio Frequency Technician Faxed an updated Interagency Order form to [facility] and spoke to Admissions about the changes. Date Signed: 07/12/2017 01:00 PM Electronically Signed By:Dottie Desouza Intervention Information Intervention Type:*HAAS-Signed Date of Service:07/07/2017 04:19 PM Patient Type:Inpatient Staff Member:Natty Parmar Hours: Discipline: Severity: Comment: Intervention Type:*IM-Signed Date of Service:07/12/2017 12:16 PM Patient Type:Inpatient Staff Member:Dottie Desouza Hours:0.25 Discipline:Charter Driver Severity: Comment:
== END 2017-07-12 12:53 | DRG 470 ==
LOC: EDUNIT# → OBSVTOIN 03:33 → F3E 03:42 → F3N 07-08 15:12
PROVIDERS: ADMIT Internal Medicine; ATTEND Internal Medicine
PROC: 0SRR0J9 Replacement of Right Hip Joint, Femoral Surface with Synthetic Substitute, Cemented, Open Approach (ICD-10-PCS; principal; 2017-07-08 11:30)
DX: S72.001A Fracture of unspecified part of neck of right femur, initial encounter for closed fracture (principal); W19.XXXA Unspecified fall, initial encounter; N39.0 Urinary tract infection, site not specified; B96.20 Unspecified Escherichia coli [E. coli] as the cause of diseases classified elsewhere; E87.1 Hypo-osmolality and hyponatremia; D62 Acute posthemorrhagic anemia; J98.11 Atelectasis; I50.32 Chronic diastolic (congestive) heart failure; J96.11 Chronic respiratory failure with hypoxia; F03.90 Unspecified dementia, unspecified severity, without behavioral disturbance, psychotic disturbance, mood disturbance, and anxiety; G89.29 Other chronic pain; F11.20 Opioid dependence, uncomplicated; J44.9 Chronic obstructive pulmonary disease, unspecified; E03.9 Hypothyroidism, unspecified; M81.0 Age-related osteoporosis without current pathological fracture; K22.70 Barrett's esophagus without dysplasia; Z96.653 Presence of artificial knee joint, bilateral
CPT/HCPCS: C1713; J0171; J0690; J0696; J1170; J1200; J1650; J2001; J2704; J3010; P9016

== ENCOUNTER 2018-01-10 12:15 | Inpatient (IN) | payer OTHER, MEDICAID ==
[2018-01-10] MEDS ORDERED: NS 2,000 ML IV ONE (13:02)
[2018-01-10] MEDS ORDERED: VANCOMYCIN HCL/NORMAL SALINE 250 ML IV ONE (13:03)
--- NOTE | 2018-01-10 13:07 | EDPHY ---
H & P Stated Complaint: L facial redness/swelling x 1 day, recent pna Time Seen by Provider: 01/10/18 12:52 HPI/ROS: CHIEF COMPLAINT: Facial cellulitis HISTORY OF PRESENT ILLNESS: Patient is a 87-year-old female who is brought from [facility] for possible cellulitis to her left face. Over last 2-3 days her family has noticed swelling and tenderness in firmness to her left cheek and some mandibular area. It is not erythematous or warm. Is not known whether not had a fever. She also has a bedsore on her right gluteus that is erythematous warm and blistering. It is not currently open. She has a history of advanced dementia as well as COPD and CHF. She was hospitalized last fall after hip fracture and urinary tract infection and was treated recently [facility] for pneumonia. Family is not sure which antibiotic. The patient complains of pain primarily in the left side of her face. REVIEW OF SYSTEMS: Constitutional: denies: chills, fever, recent illness, recent injury EENTM: denies: blurred vision, double vision, nose congestion Respiratory: denies: cough, shortness of breath Cardiac: denies: chest pain, irregular heart rate, lightheadedness, palpitations Gastrointestinal/Abdominal: denies: abdominal pain, diarrhea, nausea, vomiting, blood streaked stools Genitourinary: denies: dysuria, frequency, hematuria, pain Musculoskeletal: denies: joint pain, muscle pain Skin: See HPI Neurological: denies: headache, numbness, paresthesia, tingling, dizziness, weakness Hematologic/Lymphatic: denies: blood clots, easy bleeding, easy bruising Immunologic/allergic: denies: HIV/AIDS, transplant EXAM: GENERAL: Lying on her left side in bed, confused HEAD: Atraumatic, normocephalic. EYES: Pupils equal round and reactive to light, extraocular movements intact, sclera anicteric, conjunctiva are normal. ENT: TMs normal, nares patent, oropharynx clear without exudates. Moist mucous membranes. NECK: Normal range of motion, supple without lymphadenopathy or JVD. LUNGS: Breath sounds clear to auscultation bilaterally and equal. No wheezes rales or rhonchi. HEART: Regular rate and rhythm without murmurs, rubs or gallops. ABDOMEN: Soft, nontender, normoactive bowel sounds. No guarding, no rebound. No masses appreciated. BACK: No CVA tenderness, no spinal tenderness, step-offs or deformities EXTREMITIES: Normal range of motion, no pitting or edema. No clubbing or cyanosis. NEUROLOGICAL: Cranial nerves II through XII grossly intact. Normal speech, normal gait. 5/5 strength, normal movement in all extremities, normal sensation PSYCH: Unable to answer most questions appropriately SKIN: Left cheek and submandibular region firm and edematous, not erythematous or warm to the touch. Very tender. Stage 1-2 decubitus to the right gluteus. Blistering and erythema present. Source: Patient - Personal History Tetanus Vaccine Date: PT ALLERGIC TO TETANUS VACCINE - Medical/Surgical History Hx Asthma: Yes Hx Chronic Respiratory Disease: Yes Hx Diabetes: No Hx Cardiac Disease: Yes Hx Renal Disease: No Hx Cirrhosis: No Hx Alcoholism: No Hx HIV/AIDS: No Hx Splenectomy or Spleen Trauma: No Other PMH: Anemia, lamar's esophagus, dementia, chronic o2, wheelchair-bound, CHF, COPD, B TKA, femur repair, hip repair, c-sections, hysterectomy, urinary incontinence, palliative care, pna 12/26 - Family History Significant Family History: No pertinent family hx - Social History Smoking Status: Never smoked Alcohol Use: Sober Constitutional: Initial Vital Signs Temperature (C) 36.5 C 01/10/18 12:40 Heart Rate 88 01/10/18 12:40 Respiratory Rate 20 01/10/18 12:40 Blood Pressure 126/74 H 01/10/18 12:40 O2 Sat (%) 93 01/10/18 12:40 O2 Delivery Mode Nasal Cannula O2 (L/minute) 3 Allergies/Adverse Reactions: aspirin Allergy (Severe, Verified 04/27/13 20:38) Anaphylaxis tetanus toxoid, adsorbed [Tetanus Toxoid,Adsorbed] Allergy (Severe, Verified 20:38) Other-Enter Comments epinephrine [Epinephrine] Allergy (Unknown, Verified 04/27/13 20:38) Unknown hydrocodone [Hydrocodone] Allergy (Unknown, Verified 04/27/13 20:38) Unknown hydrochlorothiazide Allergy (Verified 04/27/13 20:38) Home Medications: Medication Instructions Recorded Acetaminophen [Tylenol 325mg (*)] 650 mg PO Q6HRS PRN 05/30/15 Ergocalciferol [Vitamin D2 (*)] 50,000 units PO Q30D 05/30/15 Levothyroxine [Synthroid 88 mcg 88 mcg PO DAILY06 05/30/15 (*)] Trimethoprim 200 mg PO DAILY 05/30/15 traZODone [traZODONE 50MG (*)] 25 mg PO HS 05/30/15 Ondansetron HCl [Zofran] 4 mg PO Q8HRS PRN 07/07/17 Albuterol [Proventil Inhaler HFA 2 puffs IH Q6 PRN 01/10/18 (*)] Sertraline HCl [Zoloft 100mg (*)] 100 mg PO DAILY 01/10/18 Medical Decision Making - Diagnostics Imaging Results: Imaging Impressions Face CT 01/10/18 13:04 Impression: 1. Large, heterogeneously enhancing left submandibular mass. Differential considerations include odontogenic abscess and malignancy. This could possibly be further characterized by ultrasound. Biopsy may be warranted. 2. Bulky left submandibular and cervical lymphadenopathy, which could be reactive or malignant. Findings and recommendations discussed with MEHNAZ ROY at 347PM hour, 2017. Final report concurs with initial preliminary interpretation. Chest X-Ray 01/10/18 13:26 Impression: 1. Moderate hiatal hernia. 2. No definite pneumonia. 3. Consider chest 2 views when the patient's medical condition permits. Head/Neck Ultrasound 01/10/18 15:42 Impression: 1. Complex left submandibular soft tissue mass as described above. Differential considerations include phlegmon, malignancy, lymphoma and complicated sialoadenitis. Further characterization by ultrasound guided needle biopsy may be indicated. 2. No drainable component. 3. Submandibular lymphadenopathy versus edematous salivary gland. Findings and recommendations discussed with MEHNAZ ROY at 4:45 PM hour, 01/10/2018. Imaging: Discussed imaging studies w/ call or contact centre coach Radiologist ED Course/Re-evaluation: The patient's son called the detention and found out that she had been on Levaquin until 3 days ago. The radiologist has a hard time determining whether this is a malignancy of cellulitis or abscess. He suggests ultrasound. The patient meets criteria for sepsis but not severe sepsis. She has received IV fluids as well as antibiotics. 4:30 p.m. I discussed the case with Dr. Duglas Cardona who will admit to the medical service. We are pending ultrasound and will see if surgery needs to be consulted as well. 5:40 p.m. No drainable abscess seen on ultrasound. Differential Diagnosis: Partial list of the Differential diagnosis considered include but were not limited to; facial cellulitis, abscess, decubitus ulcer, sepsis and although unlikely based on the history and physical exam, I also considered pneumonia, acute coronary disease. I discussed these differential diagnoses and the plan with the patient as well as the usual and expected course. The patient understands that the diagnosis is provisional and that in medicine we are not always correct and that further workup is often warranted. Usual and customary warnings were given. All of the patient's questions were answered. The patient was instructed to return to the emergency department should the symptoms at all worsen or return, otherwise to followup with the physician as we discussed. Critical Care Time: Critical care time spent by me, Dr. Roy exclusive with this patient was 45 minutes, exclusive of the PA time exclusive of procedures. The organ system that was at risk was her vascular and I gave IV fluids, antibiotics, consultation and admission to prevent worsening of the patient's condition - Data Points Laboratory Results: Laboratory Results 01/10/18 12:00 01/10/18 12:00 01/10/18 01/10/18 01/10/18 14:00 12:00 12:00 WBC RBC Hgb Hct MCV MCH MCHC RDW Plt Count MPV Neut % (Auto) Lymph % (Auto) [place] % (Auto) Eos % (Auto) Baso % (Auto) Nucleat RBC Rel Count Absolute Neuts (auto) Absolute Lymphs (auto) Absolute Monos (auto) Absolute Eos (auto) Absolute Basos (auto) Absolute Nucleated RBC Immature Gran % Immature Gran # PT Cancelled INR Cancelled VBG Lactic Acid 1.6 mmol/L mmol/L (0.7-2.1) Sodium 130 mEq/L L mEq/L (135-145) Potassium 5.0 mEq/L mEq/L (3.5-5.2) Chloride 97 mEq/L mEq/L (97-110) Carbon Dioxide 25 mEq/l mEq/l (22-31) Anion Gap 8 mEq/L mEq/L (8-16) BUN 14 mg/dL mg/dL (7-23) Creatinine 0.5 mg/dL L mg/dL (0.6-1.0) Estimated GFR > 60 Glucose 85 mg/dL mg/dL (70-100) Calcium 9.5 mg/dL mg/dL (8.5-10.4) Total Bilirubin 0.5 mg/dL mg/dL (0.1-1.4) 01/10/18 12:00 WBC 16.77 10^3/uL H 10^3/uL (3.80-9.50) RBC 3.92 10^6/uL L 10^6/uL (4.18-5.33) Hgb 11.0 g/dL L g/dL (12.6-16.3) Hct 34.7 % L % (38.0-47.0) MCV 88.5 fL fL (81.5-99.8) MCH 28.1 pg pg (27.9-34.1) MCHC 31.7 g/dL L g/dL (32.4-36.7) RDW 15.6 % H % (11.5-15.2) Plt Count 416 10^3/uL H 10^3/uL (150-400) MPV 10.2 fL fL (8.7-11.7) Neut % (Auto) 78.9 % H % (39.3-74.2) Lymph % (Auto) 10.4 % L % (15.0-45.0) [place] % (Auto) 9.1 % % (4.5-13.0) Eos % (Auto) 0.8 % % (0.6-7.6) Baso % (Auto) 0.2 % L % (0.3-1.7) Nucleat RBC Rel Count 0.0 % % (0.0-0.2) Absolute Neuts (auto) 13.23 10^3/uL H 10^3/uL (1.70-6.50) Absolute Lymphs (auto) 1.74 10^3/uL 10^3/uL (1.00-3.00) Absolute Monos (auto) 1.53 10^3/uL H 10^3/uL (0.30-0.80) Absolute Eos (auto) 0.13 10^3/uL 10^3/uL (0.03-0.40) Absolute Basos (auto) 0.04 10^3/uL 10^3/uL (0.02-0.10) Absolute Nucleated RBC 0.00 10^3/uL 10^3/uL (0-0.01) Immature Gran % 0.6 % % (0.0-1.1) Immature Gran # 0.10 10^3/uL 10^3/uL (0.00-0.10) PT INR VBG Lactic Acid Sodium Potassium Chloride Carbon Dioxide Anion Gap BUN Creatinine Estimated GFR Glucose Calcium Total Bilirubin Medications Given: Hydromorphone HCl (Dilaudid) 0.2 - 0.4 mg IVP Q4HRS PRN PRN Reason: Pain, Severe Unable to Take PO Stop: 01/20/18 17:19 Last Admin: 01/10/18 19:27 Dose: 0.4 mg Discontinued Medications Hydromorphone HCl (Dilaudid) 0.5 mg IVP EDNOW ONE Stop: 01/10/18 13:49 Last Admin: 01/10/18 13:53 Dose: 0.5 mg Sodium Chloride (Ns) 2,000 mls @ 4,000 mls/hr 30 ml/kg infuse over 30 min ( 2000 ml) IV EDNOW ONE PRN Reason: Protocol Stop: 01/10/18 13:31 Last Admin: 01/10/18 13:30 Dose: 2,000 mls Vancomycin/Sodium Chloride (Vancomycin 1 Gm (Premix)) 250 mls @ 250 mls/hr IV EDNOW ONE PRN Reason: Protocol Stop: 01/10/18 14:02 Last Admin: 01/10/18 15:21 Dose: 250 mls Lorazepam (Ativan Injection) 0.5 mg IVP EDNOW ONE Stop: 01/10/18 13:19 Last Admin: 01/10/18 13:26 Dose: 0.5 mg Departure - Departure Disposition: [facility] Acute Clinical Impression: Cellulitis Qualifiers: Site of cellulitis: unspecified site Qualified Code(s): L03.90 - Cellulitis, unspecified Sepsis Qualifiers: Sepsis type: sepsis due to unspecified organism Qualified Code(s): A41.9 - Sepsis, unspecified organism Condition: Fair
[2018-01-10 13:09] LABS: PLATELET COUNT 416 10^3/uL (150-400)
[2018-01-10] MEDS ORDERED: LORazepam 2 MG/ML INJ IVP ONE (13:18)
[2018-01-10] MEDS ORDERED: HYDROmorphONE/DILAUDID 1 MG/ML INJ IVP ONE (13:48)
[2018-01-10] MEDS ORDERED: HYDROmorphONE/DILAUDID 2 MG/ML INJ ONE (13:50)
[2018-01-10] MEDS ORDERED: IOPAMIDOL (ISOVUE-300) 100 ML BTL ONE (14:12)
--- NOTE | 2018-01-10 17:06 | ASMTCMCOM ---
CM Note CM Note Notes: ED RN Lissette reported that patient's son/NAVNEET Boyer has spoken with physician at [facility] about hospice and is interested in having patient assessed. They would like a referral to [facility] during this hospital admission. Case Management will follow. Date Signed: 01/10/2018 05:06 PM Electronically Signed By:Veena Copeland RN
[2018-01-10] MEDS ORDERED: PROMETHAZINE HCL 25 MG/ML INJ IVP PRN (17:20)
[2018-01-10] MEDS ORDERED: LORazepam 0.5 MG TAB PO PRN (17:20)
[2018-01-10] MEDS ORDERED: ONDANSETRON 4 MG/2 ML VIAL IVP PRN (17:20)
--- NOTE | 2018-01-10 18:01 | GHP ---
[f rep st] HISTORY AND PHYSICAL DATE OF ADMISSION: 01/10/2018 HISTORY OF PRESENT ILLNESS: The patient is a pleasant 87-year-old female with a history of dementia and hip fracture in June of 2017. Since then, she has had a significant functional decline, spendi ng much of her time in bed. Her son is at the bedside. He visited her last night where she lives at [facility] and noticed some swelling on the side of her face and complains of pain. This morning th ey also noted similar things, so she was brought to [facility] where she had swelling in her left mandibular area. When I speak with the patient, she grimaces with interaction. She ask s what is going on here, but is really unable to comply with exam. She will not open her mouth for m e to look at her teeth, but when I do I see very poor dentition. Her son notes that she has been eat ing and drinking very poorly over the last couple of weeks. REVIEW OF SYSTEMS: Complete 10-point review of systems conducted and negative except as noted in the HPI. PAST MEDICAL HISTORY: 1. Hip fracture in June of 2017, status postoperative repair. 2. Advanced dementia. 3. COPD. 4. Hypothyroidism. 5. Hypertension. 6. History of breast cancer. 7. Stevens's esophagus. 8. Urinary incontinence. 9. Chronic anemia. FAMILY HISTORY: Son is at the bedside and healthy. SOCIAL HISTORY: Lives in [facility]. Nonsmoker, nondrinker. ALLERGIES: Aspirin, tetanus toxoid, epinephrine, hydrocodone, hydrochlorothiazide. HOME MEDICATIONS: Trazodone, ropinirole, guaifenesin/dextromethorphan, trimethoprim, tiotropium, ser traline, senna, salmeterol, polyethylene glycol, ondansetron, omeprazole, methocarbamol, Mag oxide, l evothyroxine, lorazepam, ketoconazole, ipratropium, hydromorphone, gabapentin, furosemide, estrogen, vitamin D2. That is an unreconciled list. PHYSICAL EXAMINATION: VITAL SIGNS: Temperature 37, blood pressure 88/60, pulse 90, breathing 18 lito es a minute, 95% on 3 L. GENERAL: She is uncomfortable. HEENT: Sclerae anicteric. Her oropharynx is notable for very poor dentition. She will not really open her mouth. She has a 3 inch indurated mass at her posterior mandible on the left side. There is no fluctuance. NECK: Supple. LUNGS: C lear to auscultation anterolaterally. HEART: S1, S2 and tachycardic. ABDOMEN: Soft. She does gri mace when I press on it. She had diarrhea in the emergency department. LOWER EXTREMITIES: Without edema. She is in a boot. She has a stage II decubitus ulcer on her left buttock that was present on admission. NEUROLOGIC: Notable for a patient who has significant dementia. She is unable to signi ficantly interact. LABS: White count 17, hematocrit 34, platelets are 416,000. Venous lactate is 1.6. Sodium 130, pot assium 5.0, chloride 97, bicarb 25, BUN 14, creatinine 0.5, glucose 60. CT of the face, images revie wed interpreted by me, shows heterogeneously enhancing left submandibular mass. There is no evidence of abscess. Left submandibular and cervical lymphadenopathy. Differential is malignancy versus inf ection. Chest x-ray interpreted by me shows moderate hiatal hernia. No definite pneumonia. Head an d neck ultrasound, complex left submandibular soft tissue mass at 15 x 24 x 43 mm. I have discussed the case with Dr. Oscar Roy. ASSESSMENT/PLAN: An 87-year-old female who presents with likely left facial cellulitis with developi ng phlegmon/abscess. 1. Abscess. She received vancomycin in the emergency department, is a reasonable antibiotic choice. 2. Plan of care. The patient has significant functional decline and at this point in time, is a can didate for comfort care. I discussed with the son and he agrees with this. In fact, he enthusiastic ally endorsed comfort care on his mother. We will hold antibiotics and IV fluids. I will place her on Roxanol, IV pain medicines, IV Ativan and antiemetics. I will place a hospice care evaluation. 3. Prophylaxis. Pharmacologic deep venous thrombosis prophylaxis contraindicated with comfort care. DISPOSITION: Inpatient. /[id number]/MODL
[2018-01-10] MEDS: HYDROmorphONE/DILAUDID 2 MG/ML INJ IVP PRN (19:27)
[2018-01-11] MEDS: morphINE 10 MG/0.5 ML UDSYR PO PRN ×3 (00:03→15:44)
[2018-01-11] MEDS: LORazepam 2 MG/ML INJ IVP PRN ×3 (01:21→14:49)
[2018-01-11] MEDS: HYDROmorphONE/DILAUDID 2 MG/ML INJ IVP PRN ×3 (01:26→12:36)
[2018-01-11 08:44] VITALS: RESP 16
--- NOTE | 2018-01-11 10:39 | PDMN ---
Medical Necessity Medical necessity: Patient meets inpatient criteria per physician note and MCG M -70 Cellulitis (L facial cellulitis w/developing phlegmon/abscess; systolic B/P in 80's; anticipated LOS > 2 midnights for Roxanol, IV Dilaudid for breaththrough pain, other comfort care, pending hospice consult.)
[2018-01-11 11:50] VITALS: BP 124/44; PULSE 95; TEMP 99.1; O2SAT 94
--- NOTE | 2018-01-11 13:10 | HOSPPROG ---
Hospitalist Progress Note Assessment/Plan: Patient is an 87-year-old female with history dementia and hip fracture in June of 2017. She has had significant functional decline spinning most of her time in bed. Today is my first encounter with the patient, chart reviewed. * overall failure to thrive -hospice evaluation * enhancing left submandibular mass -reviewed the imaging. unclear if she has and abscess and malignancy -no further w/u at this time -abx on hold *dementia *met w hospice and she qualifies, will dc now back to , vital signs are stable for transfer Subjective: Pham is groggy and opens her eyes but not conversant. Objective: Vital Signs Temp Pulse Resp BP Pulse Ox 37.3 C 95 16 124/44 H 94 01/11/18 11:49 01/11/18 11:49 01/11/18 11:49 01/11/18 11:49 01/11/18 11:49 01/10/18 01/11/18 01/12/18 05:59 05:59 05:59 Intake Total 0 Balance 0 PT Cancelled 01/10/18 12:00 INR Cancelled 01/10/18 12:00 - Physical Exam Constitutional: chronically ill appearing Ears, Nose, Mouth, Throat: dry mucous membranes, hard of hearing Cardiovascular: regular rate and rhythym, tachycardia Gastrointestinal: normoactive bowel sounds Skin: warm Psychiatric: encephalopathic ICD10 Worksheet Patient Problems: Problems Problem Status Onset Cellulitis Acute Sepsis Acute Hip fracture, right Acute Tibial fracture Acute Urinary tract infection Acute
--- NOTE | 2018-01-11 14:13 | PDIAF ---
- Diagnosis Diagnosis: ftt,dementia, left facial mass (cellulitis) Code Status: Do Not Resuscitate - Medication Management Discharge Medications: Medications to Continue on Transfer Acetaminophen [Tylenol 325mg (*)] 650 mg PO Q6HRS PRN 05/30/15 [Last Taken Unknown] Ondansetron HCl [Zofran] 4 mg PO Q8HRS PRN 07/07/17 [Last Taken Unknown] LORazepam [Ativan (*)] 0.5 - 1 mg PO Q4HRS PRN tab 01/11/18 [Last Taken Unknown ] morphINE [Roxanol 10 mg/0.5 ml oral soln (*)] 5 - 20 mg PO Q2HRS PRN udsyr 04/25 [Last Taken Unknown] Discharge Medications: Refer to the Discharge Home Medication list for PRN reason. PICC Care - Routine: N/A - Orders Services needed: Registered Nurse, Certified Molder Fitting Isolation Type: CDIFF Isolation Diet Recommendation: no restrictions on diet Additional: care per hospice - Follow Up Care Current Providers and Referrals: TURNER HARRIS [Other] - As per Instructions
--- NOTE | 2018-01-11 16:29 | GDS ---
[f rep st] DISCHARGE SUMMARY DISCHARGE DIAGNOSIS: 1. Overall failure to thrive. 2. Enhancing left submandibular mass. 3. Dementia. HISTORY OF PRESENT ILLNESS: Briefly, Pham Rojas is an 87-year-old female with a history of dementia and hip fracture in 06/2017. Since then, she has had significant functional decline, spending most of her time in her bed. Her son went to visit her at [facility]. He noticed that she had some swelling on the left side of her face with complaints of pain. She has been not eating and drinking. She was admitted and had a CT of the face which showed an enhancing submandibular mass, differentials of malignancy versus infection. A chest x- ray was performed which showed a moderate hiatal hernia without pneumonia. Head and neck ultrasound showed a complex left submandibular soft tissue mass at 15 x 24 x 43 mm. The admitting doctor spoke with the patient's son. He wished to pursue hospice. She will go back to [facility] with hospice care. CONDITION AT DISCHARGE: Stable. Blood pressure is 124/44, heart rate is 95, respiratory rate is 16, O2 saturations on 2 L are 94%, temperature is 37.3 Celsius. MEDICATIONS AT DISCHARGE: Please see the EMR. The plan is for only comfort measures at this time and her home medications have been discontinued. TIME SPENT: Greater than 30 minutes discharging and coordinating the patient's care. Copy requested to: PCP /[id number]/MODL MTDD
--- NOTE | 2018-01-11 16:52 | ASMTCMCOM ---
CM Note CM Note Notes: Pt son request [facility] hosp[facility], referral sent in Allscripts. Suzy bass [facility] [phone] met w pt and son, pt qualifies for hospice and Suzy can meet pt at [facility] for a d/c today. Orders sent in [employer] to [facility] and [facility]. [facility] transport scheduled for 1600, PCS completed. New referral to [facility] had to be sent in Allscripts since pt was here over 24 hrs. BENJAMIN Denton to call report. Date Signed: 01/11/2018 04:51 PM Electronically Signed By:EMRE Francis
--- NOTE | 2018-01-11 16:52 | ASDISCHSUM ---
Discharge Information Plan Status:Hospice-SNF Medically Cleared to Leave: Discharge Date:01/11/2018 04:38 PM D/C Disposition: ADT D/C Disposition:[facility] Facility Projected Discharge Date:01/11/2018 11:00 AM Transportation at D/C:ALS/BLS Discharge Delay Reason: Follow-Up Date:01/11/2018 11:00 AM Discharge Slot: Final Diagnosis: Placement Information Referral Type:*Hospice Referral ID:[id number] Provider Name:Lupillous Garcia ([facility]) Address 1:[address] [place] [address] Address 2:[address] City:[place] Selection Factors: State:[place] Referral Type:*Snf/SNF Referral ID:[id number] Provider Name:[facility] Address 1:[address] Address 2: [facility]:[place] Selection Factors: State:[place] Patient Contact Information Contact Name:NOAH Relationship:Son Address:[address] Work Phone: City:[place] Alternate Phone: State/Zip Code:[place] [address] Email: Financial Information Financial Class:Medicare Advantage Plans Primary Plan Desc:[employer] Primary Plan Number:[id number] Secondary Plan Desc:MEDICAID [facility] Secondary Plan Number:[id number] Assessment Information [facility] CM Progress Note CM Note CM Note Notes: ED BENJAMIN Mclaughlin reported that patient's son/NAVNEET Boyer has spoken with physician at [facility] about hospice and is interested in having patient assessed. They would like a referral to [facility] during this hospital admission. Case Management will follow. Date Signed: 01/10/2018 05:06 PM Electronically Signed By:Veena Copeland RN [facility] CM Progress Note CM Note CM Note Notes: Pt son request [facility], referral sent in [employer]. Suzy bass [facility] [phone] met w pt and son, pt qualifies for hospice and Suzy can meet pt at [facility] for a d/c today. Orders sent in Allscripts to [facility] and [facility]. [facility] transport scheduled for 1600, PCS completed. New referral to [facility] had to be sent in Allscripts since pt was here over 24 hrs. BENJAMIN Denton to call report. Date Signed: 01/11/2018 04:51 PM Electronically Signed By:EMRE Francis Intervention Information
== END 2018-01-11 16:38 | disposition hospice, home (50) | DRG 607 ==
LOC: EDUNIT# → OBSVTOIN 16:34 → F3N 17:46
PROVIDERS: ADMIT Internal Medicine; ATTEND Internal Medicine
DX: R22.0 Localized swelling, mass and lump, head (principal); L03.211 Cellulitis of face; R62.7 Adult failure to thrive; F03.90 Unspecified dementia, unspecified severity, without behavioral disturbance, psychotic disturbance, mood disturbance, and anxiety; J44.9 Chronic obstructive pulmonary disease, unspecified; I50.9 Heart failure, unspecified; E03.9 Hypothyroidism, unspecified; K44.9 Diaphragmatic hernia without obstruction or gangrene; I10 Essential (primary) hypertension; Z87.440 Personal history of urinary (tract) infections; Z87.01 Personal history of pneumonia (recurrent); Z87.81 Personal history of (healed) traumatic fracture; Z85.3 Personal history of malignant neoplasm of breast
CPT/HCPCS: 96365; J1170; J2060; J3370; Q9967